=== PATIENT | female | born 1970 | race Caucasian/White ===

== ENCOUNTER 2018-04-05 21:35 | Inpatient (IN) | payer MEDICAID ==
[~2018-04-05] VITALS: Ht 162.6 cm; Wt 78.6 kg
[~2018-04-05 21:35] MED LIST: ALBU18HF2 IH; CARV3.1242 PO; FERR325T23 PO; FURO-151 PO; LISI-186 PO; NIFE60TA64 PO
[2018-04-05] MEDS ORDERED: FUROSEMIDE 40MG/4ML VIAL IV ONE (23:00)
[2018-04-05 23:12] LABS: BASOPHILS % 1.2 % (0.0-2.0); EOSINOPHILS % 0.3 % (0.0-5.0); HEMATOCRIT. 41.2 % (36.0-48.0); LYMPHOCYTES % 11.2 % (20.0-50.0); MEAN CORPUSCULAR HEMOGLOBIN 24.2 pg (28.0-32.0); MEAN CORPUSCULAR VOLUME 76.4 fL (81.0-99.0); MEAN PLATELET VOLUME 9.4 fl (7.4-10.4); MONOCYTES % 8.8 % (2.0-8.0); NEUTROPHILS % 78.5 % (40.0-76.0); PLATELET 336 x1000/uL (130-400); RED BLOOD CELL COUNT 5.39 mill/uL (4.2-5.4)
[2018-04-05 23:18] LABS: CHLORIDE 102 mEq/L (98-107)
[2018-04-06] VITALS (7 sets, daily range): BP systolic 122–147; BP diastolic 84–100
[2018-04-06] MEDS ORDERED: NIFE20CA MT (04:10)
[2018-04-06] MEDS ORDERED: IPRATROPIUM/ALBUTEROL 0.5-3(2.5)MG/3ML NEB HHN PRN (05:00)
[2018-04-06] MEDS ORDERED: CLONIDINE 0.1MG TABLET PO PRN (05:15)
[2018-04-06] MEDS: SPIRONOLACTONE 25MG TABLET PO SCH (08:25)
[2018-04-06] MEDS: ASPIRIN 325MG TABLET PO SCH (08:25)
[2018-04-06] MEDS: FUROSEMIDE 40MG/4ML VIAL IVP SCH ×2 (08:25→17:01)
[2018-04-06] MEDS: ENOXAPARIN 40MG/0.4ML SYR SUBCUT SCH (08:26)
[2018-04-06] MEDS: LISINOPRIL 10MG TABLET PO SCH (08:26)
[2018-04-06 12:26] LABS: BASOPHILS % 0.9 % (0.0-2.0); EOSINOPHILS % 0.5 % (0.0-5.0); HEMATOCRIT. 38.3 % (36.0-48.0); HEMOGLOBIN. 11.9 g/dL (12.0-16.0); LYMPHOCYTES % 10.5 % (20.0-50.0); MEAN CORPUSCULAR HEMOGLOBIN 23.9 pg (28.0-32.0); MEAN CORPUSCULAR VOLUME 76.8 fL (81.0-99.0); MEAN PLATELET VOLUME 9.3 fl (7.4-10.4); MONOCYTES % 10.2 % (2.0-8.0); NEUTROPHILS % 77.9 % (40.0-76.0); PLATELET 270 x1000/uL (130-400); RED BLOOD CELL COUNT 4.99 mill/uL (4.2-5.4); RED CELL DISTRIBUTION WIDTH 17.8 % (11.6-14.6)
[2018-04-06 12:43] LABS: CHLORIDE 99 mEq/L (98-107)
[2018-04-06] MEDS: CARVEDILOL 6.25 MG TABLET PO SCH (20:13)
[2018-04-06 21:28] LABS: CLARITY URINE CLEAR (CLEAR); COLOR URINE YELLOW (YELLOW); KETONES URINE NEGATIVE (NEGATIVE); LEUKOCYTE ESTERASE URINE TRACE (NEGATIVE); NITRITE URINE NEGATIVE (NEGATIVE); OCCULT BLOOD URINE NEGATIVE (NEGATIVE); PH URINE 5.5 (4.5-8.0); PROTEIN URINE NEGATIVE (NEGATIVE); SPECIFIC GRAVITY URINE 1.006 (1.005-1.030)
[2018-04-06 21:37] LABS: *BARBITURATES SCREEN URINE NEGATIVE (NEGATIVE); *BENZODIAZEPINES SCREEN URINE NEGATIVE (NEGATIVE); *COCAINE SCREEN URINE NEGATIVE (NEGATIVE); METHADONE URINE SCREEN NEGATIVE (NEGATIVE); OPIATES URINE SCREEN NEGATIVE (NEGATIVE)
[2018-04-06 21:39] LABS: PHENCYCLIDINE URINE SCREEN NEGATIVE (NEGATIVE)
[2018-04-06 21:43] LABS: *AMPHETAMINES SCREEN URINE PRESUMTIVE POSITIVE (NEGATIVE); CANNABINOID URINE SCREEN PRESUMTIVE POSITIVE (NEGATIVE)
[2018-04-07] VITALS (7 sets, daily range): BP systolic 110–138; BP diastolic 67–96
[2018-04-07 06:29] LABS: BASOPHILS % 0.9 % (0.0-2.0); EOSINOPHILS % 2.6 % (0.0-5.0); HEMATOCRIT. 35.5 % (36.0-48.0); HEMOGLOBIN. 11.4 g/dL (12.0-16.0); LYMPHOCYTES % 22.1 % (20.0-50.0); MEAN CORPUSCULAR HEMOGLOBIN 24.5 pg (28.0-32.0); MEAN CORPUSCULAR VOLUME 76.2 fL (81.0-99.0); MEAN PLATELET VOLUME 9.4 fl (7.4-10.4); MONOCYTES % 11.1 % (2.0-8.0); NEUTROPHILS % 63.3 % (40.0-76.0); PLATELET 248 x1000/uL (130-400); RED BLOOD CELL COUNT 4.66 mill/uL (4.2-5.4)
[2018-04-07 06:48] LABS: CHLORIDE 99 mEq/L (98-107)
[2018-04-07] MEDS: SPIRONOLACTONE 25MG TABLET PO SCH (09:51)
[2018-04-07] MEDS: ASPIRIN 325MG TABLET PO SCH (09:52)
[2018-04-07] MEDS: ENOXAPARIN 40MG/0.4ML SYR SUBCUT SCH (09:52)
[2018-04-07] MEDS: LISINOPRIL 10MG TABLET PO SCH (09:53)
[2018-04-07] MEDS: CARVEDILOL 6.25 MG TABLET PO SCH (09:54)
[2018-04-07] MEDS: FUROSEMIDE 40MG/4ML VIAL IVP SCH ×2 (13:12→17:56)
[2018-04-07] MEDS ORDERED: CARVEDILOL 12.5MG TABLET PO SCH (21:00)
== END 2018-04-07 21:25 | disposition home or self-care (01) | DRG 194 ==
LOC: ER 21:35 → 8WST 04-06 01:20 → EDBEDREQDT 04-06 01:22 → EDBEDREQ 04-06 01:22 → EDBEDREQTM 04-06 01:22 → ENRESERV 04-06 02:40
PROVIDERS: ADMIT Internal Medicine; ATTEND Internal Medicine
DX: I11.0 Hypertensive heart disease with heart failure (principal); I27.20 Pulmonary hypertension, unspecified; I42.9 Cardiomyopathy, unspecified; E44.1 Mild protein-calorie malnutrition; I50.23 Acute on chronic systolic (congestive) heart failure; F12.10 Cannabis abuse, uncomplicated; F15.90 Other stimulant use, unspecified, uncomplicated; I34.0 Nonrheumatic mitral (valve) insufficiency; Z87.891 Personal history of nicotine dependence; Z98.891 History of uterine scar from previous surgery; Z68.29 Body mass index [BMI] 29.0-29.9, adult; Z79.899 Other long term (current) drug therapy; Z71.51 Drug abuse counseling and surveillance of drug abuser
CPT/HCPCS: 36415; 71045; 80048; 80305; 83880; 93005; 93306; 93970; 96374; 99285; J1650; J1940

== ENCOUNTER 2018-05-08 12:20 | Inpatient (IN) | payer MEDICAID ==
[~2018-05-08] VITALS: Ht 162.6 cm; Wt 86.2 kg
[~2018-05-08 12:20] MED LIST changes: -ALBU18HF2 IH; -FERR325T23 PO; -NIFE60TA64 PO
[2018-05-08] MEDS ORDERED: METHYLPREDNISOLONE SOD SUCC 125 MG/2 ML VIAL IV STA (15:37)
[2018-05-08] MEDS ORDERED: IPRATROPIUM BROMIDE (0.02%) 0.5MG/2.5ML NEB HHN STA (15:37)
[2018-05-08] MEDS ORDERED: ALBUTEROL (0.083%) 2.5MG/3ML NEB HHN STA (15:37)
[2018-05-08] MEDS ORDERED: NITROGLYCERIN 0.4MG TABLET SL SL PRN (15:45)
[2018-05-08] MEDS ORDERED: FUROSEMIDE 40MG/4ML VIAL IV ONE (15:45)
[2018-05-08] MEDS ORDERED: ASPIRIN 81MG TABLET PO ONE (15:45)
[2018-05-08 16:47] LABS: HEMATOCRIT. 39.5 % (36.0-48.0); HEMOGLOBIN. 12.4 g/dL (12.0-16.0); MEAN CORPUSCULAR HEMOGLOBIN 23.5 pg (28.0-32.0); MEAN CORPUSCULAR VOLUME 74.8 fL (81.0-99.0); MEAN PLATELET VOLUME 9.5 fl (7.4-10.4); PLATELET 202 x1000/uL (130-400); RED BLOOD CELL COUNT 5.28 mill/uL (4.2-5.4); RED CELL DISTRIBUTION WIDTH 17.9 % (11.6-14.6)
[2018-05-08 16:53] LABS: CHLORIDE 102 mEq/L (98-107)
[2018-05-08 16:54] LABS: INR 1.7; PROTHROMBIN TIME 17.4 sec (9.1-11.1)
[2018-05-08 17:08] LABS: PLATELET ESTIMATE NORMAL
[2018-05-08] MEDS ORDERED: LEVOFLOXACIN 750MG PREMIX 150 ML IV ONE (17:15)
[2018-05-08 17:16] LABS: HCG SCREEN NEGATIVE
[2018-05-08] MEDS ORDERED: ONDANSETRON HCL 4MG/2ML INJ IV PRN (18:15)
[2018-05-08 18:40] LABS: CREATINE KINASE MB FRACTION 4.3 ng/mL (0.5-3.6)
[2018-05-08] MEDS ORDERED: METHYLPREDNISOLONE SOD SUCC 40 MG/ML VIAL IV SCH (23:00)
[2018-05-08] MEDS ORDERED: LEVOFLOXACIN 750MG PREMIX 150 ML IV SCH (23:15)
[2018-05-08 23:40] LABS: CLARITY URINE CLOUDY (CLEAR); COLOR URINE YELLOW (YELLOW); KETONES URINE NEGATIVE (NEGATIVE); LEUKOCYTE ESTERASE URINE 3+ (NEGATIVE); NITRITE URINE NEGATIVE (NEGATIVE); OCCULT BLOOD URINE 1+ (NEGATIVE); PROTEIN URINE TRACE (NEGATIVE); UROBILINOGEN URINE 0.2 E.U./dL (0.2-1.0)
[2018-05-09 00:35] LABS: *BARBITURATES SCREEN URINE NEGATIVE (NEGATIVE); *BENZODIAZEPINES SCREEN URINE NEGATIVE (NEGATIVE); *COCAINE SCREEN URINE NEGATIVE (NEGATIVE); METHADONE URINE SCREEN NEGATIVE (NEGATIVE); OPIATES URINE SCREEN NEGATIVE (NEGATIVE); PHENCYCLIDINE URINE SCREEN NEGATIVE (NEGATIVE)
[2018-05-09 00:57] LABS: *AMPHETAMINES SCREEN URINE PRESUMTIVE POSITIVE (NEGATIVE); CANNABINOID URINE SCREEN PRESUMTIVE POSITIVE (NEGATIVE)
[2018-05-09] MEDS ORDERED: IPRATROPIUM/ALBUTEROL 0.5-3(2.5)MG/3ML NEB HHN PRN (01:36)
[2018-05-09] MEDS ORDERED: GUAIFENESIN-DM 200MG-20MG/10ML UDC PO PRN (01:36)
[2018-05-09] MEDS ORDERED: ACETAMINOPHEN 325MG TABLET PO PRN (01:37)
[2018-05-09] MEDS ORDERED: ENOXAPARIN 40MG/0.4ML SYR SUBCUT SCH (09:00)
[2018-05-09] MEDS ORDERED: SPIRONOLACTONE 50MG TABLET PO SCH (09:00)
[2018-05-09] MEDS: FUROSEMIDE 40MG/4ML VIAL IVP SCH ×2 (10:00→17:12)
[2018-05-09] MEDS: ASPIRIN 81MG TABLET PO SCH (10:00)
[2018-05-09] MEDS: AZITHROMYCIN 500 MG TABLET PO SCH (10:00)
[2018-05-09] MEDS: LOSARTAN POTASSIUM 50 MG TABLET PO SCH (10:28)
[2018-05-09] MEDS: CEFTRIAXONE 1 G PREMIX 50 ML IV SCH (10:47)
[2018-05-09 12:00] VITALS: BP 115/84
[2018-05-09] MEDS: IPRATROPIUM/ALBUTEROL 0.5-3(2.5)MG/3ML NEB HHN SCH ×2 (12:00→16:00)
[2018-05-09 12:35] LABS: BASOPHILS % 0.3 % (0.0-2.0); HEMATOCRIT. 40.7 % (36.0-48.0); HEMOGLOBIN. 12.4 g/dL (12.0-16.0); LYMPHOCYTES % 7.3 % (20.0-50.0); MEAN CORPUSCULAR HEMOGLOBIN 23.2 pg (28.0-32.0); MEAN CORPUSCULAR VOLUME 76.1 fL (81.0-99.0); NEUTROPHILS % 83.4 % (40.0-76.0); PLATELET 209 x1000/uL (130-400); RED BLOOD CELL COUNT 5.34 mill/uL (4.2-5.4); RED CELL DISTRIBUTION WIDTH 17.9 % (11.6-14.6)
[2018-05-09 12:36] LABS: CHLORIDE 100 mEq/L (98-107)
[2018-05-09] MEDS ORDERED: ASPI-1158 MT (12:41)
[2018-05-09] MEDS ORDERED: FURO40TA5 PO (12:43)
[2018-05-09] MEDS ORDERED: CARV12.545 MT (12:43)
[2018-05-09] MEDS ORDERED: LISI10TA5 MT (12:44)
[2018-05-09 14:46] VITALS: BP 115/84
[2018-05-09 16:00] VITALS: BP 119/93
[2018-05-09] MEDS: MONTELUKAST SODIUM 10MG TABLET PO SCH (17:12)
[2018-05-09 20:00] VITALS: BP 145/100
[2018-05-09] MEDS: METHYLPREDNISOLONE SOD SUCC 40 MG/ML VIAL IV SCH (21:22)
[2018-05-09] MEDS: CARVEDILOL 3.125 MG TABLET PO SCH (21:22)
[2018-05-10] VITALS (7 sets, daily range): BP systolic 119–146; BP diastolic 75–103
[2018-05-10] MEDS: IPRATROPIUM/ALBUTEROL 0.5-3(2.5)MG/3ML NEB HHN SCH ×6 (03:44→20:45)
[2018-05-10] MEDS: METHYLPREDNISOLONE SOD SUCC 40 MG/ML VIAL IV SCH ×3 (05:09→20:45)
[2018-05-10 06:59] LABS: HEMATOCRIT. 38.7 % (36.0-48.0); MEAN CORPUSCULAR HEMOGLOBIN 23.2 pg (28.0-32.0); MEAN CORPUSCULAR VOLUME 75.2 fL (81.0-99.0); MEAN PLATELET VOLUME 9.8 fl (7.4-10.4); PLATELET 192 x1000/uL (130-400); RED BLOOD CELL COUNT 5.15 mill/uL (4.2-5.4); RED CELL DISTRIBUTION WIDTH 17.8 % (11.6-14.6)
[2018-05-10] MEDS ORDERED: CEFTRIAXONE 1 G PREMIX 50 ML IV SCH (09:00)
[2018-05-10] MEDS: AZITHROMYCIN 500 MG TABLET PO SCH (09:17)
[2018-05-10] MEDS: LOSARTAN POTASSIUM 50 MG TABLET PO SCH (09:17)
[2018-05-10] MEDS: CARVEDILOL 3.125 MG TABLET PO SCH (09:18)
[2018-05-10] MEDS: ASPIRIN 81MG TABLET PO SCH (09:19)
[2018-05-10] MEDS: FUROSEMIDE 40MG/4ML VIAL IVP SCH ×2 (10:17→17:32)
[2018-05-10] MEDS: CEFTRIAXONE 1 G PREMIX 50 ML IV SCH ×2 (10:30→13:08)
[2018-05-10 11:39] LABS: PLATELET ESTIMATE NORMAL
[2018-05-10] MEDS: SPIRONOLACTONE 50MG TABLET PO SCH (15:31)
[2018-05-10] MEDS: MONTELUKAST SODIUM 10MG TABLET PO SCH (17:28)
[2018-05-10] MEDS: CARVEDILOL 12.5MG TABLET PO SCH (20:46)
[2018-05-11] MEDS: IPRATROPIUM/ALBUTEROL 0.5-3(2.5)MG/3ML NEB HHN SCH ×2 (00:40→20:23)
[2018-05-11 04:00] VITALS: BP 125/86
[2018-05-11] MEDS: METHYLPREDNISOLONE SOD SUCC 40 MG/ML VIAL IV SCH ×3 (06:41→21:02)
[2018-05-11 08:00] VITALS: BP 140/101
[2018-05-11] MEDS: LOSARTAN POTASSIUM 50 MG TABLET PO SCH (08:36)
[2018-05-11] MEDS: AZITHROMYCIN 500 MG TABLET PO SCH (08:36)
[2018-05-11] MEDS: FUROSEMIDE 40MG/4ML VIAL IVP SCH ×2 (08:36→18:32)
[2018-05-11] MEDS: SPIRONOLACTONE 50MG TABLET PO SCH (08:37)
[2018-05-11] MEDS: ASPIRIN 81MG TABLET PO SCH (08:37)
[2018-05-11] MEDS: CARVEDILOL 12.5MG TABLET PO SCH (08:37)
[2018-05-11 12:00] VITALS: BP 132/96
[2018-05-11 16:00] VITALS: BP 138/103
[2018-05-11] MEDS ORDERED: ZOLPIDEM TARTRATE 5MG TABLET PO PRN (17:00)
[2018-05-11] MEDS: MONTELUKAST SODIUM 10MG TABLET PO SCH (18:33)
[2018-05-11 20:00] VITALS: BP 142/102
[2018-05-11] MEDS: CARVEDILOL 25MG TABLET PO SCH (21:00)
[2018-05-12] VITALS: BP 121/73
[2018-05-12] MEDS: IPRATROPIUM/ALBUTEROL 0.5-3(2.5)MG/3ML NEB HHN SCH ×5 (00:24→15:03)
[2018-05-12 04:00] VITALS: BP 122/87
[2018-05-12] MEDS: METHYLPREDNISOLONE SOD SUCC 40 MG/ML VIAL IV SCH ×2 (06:01→13:59)
[2018-05-12 08:00] VITALS: BP 141/110
[2018-05-12] MEDS: FUROSEMIDE 40MG/4ML VIAL IVP SCH (10:18)
[2018-05-12] MEDS: LOSARTAN POTASSIUM 50 MG TABLET PO SCH (10:18)
[2018-05-12] MEDS: ASPIRIN 81MG TABLET PO SCH (10:18)
[2018-05-12] MEDS: CEFTRIAXONE 1 G PREMIX 50 ML IV SCH (13:58)
[2018-05-12] MEDS: CARVEDILOL 25MG TABLET PO SCH (13:59)
[2018-05-12] MEDS: SPIRONOLACTONE 50MG TABLET PO SCH (13:59)
[2018-05-12] MEDS: AZITHROMYCIN 500 MG TABLET PO SCH (13:59)
== END 2018-05-12 16:08 | disposition left against medical advice (07) | DRG 720 ==
LOC: ER 12:20 → 7WST 19:03 → EDBEDREQTM 19:13 → EDBEDREQ 19:13 → EDBEDREQSVC 22:26 → EDBEDREQTM 22:26 → EDBEDREQSVC 22:36 → ENRESERV 05-09 11:37
PROVIDERS: ADMIT Internal Medicine; ATTEND Internal Medicine
DX: A41.9 Sepsis, unspecified organism (principal); J96.00 Acute respiratory failure, unspecified whether with hypoxia or hypercapnia; I50.23 Acute on chronic systolic (congestive) heart failure; E44.0 Moderate protein-calorie malnutrition; I27.20 Pulmonary hypertension, unspecified; J18.9 Pneumonia, unspecified organism; I11.0 Hypertensive heart disease with heart failure; I07.1 Rheumatic tricuspid insufficiency; E44.1 Mild protein-calorie malnutrition; I42.9 Cardiomyopathy, unspecified; J44.0 Chronic obstructive pulmonary disease with (acute) lower respiratory infection; J44.1 Chronic obstructive pulmonary disease with (acute) exacerbation; N39.0 Urinary tract infection, site not specified; F12.10 Cannabis abuse, uncomplicated; F15.10 Other stimulant abuse, uncomplicated; Z87.891 Personal history of nicotine dependence; Z98.891 History of uterine scar from previous surgery
CPT/HCPCS: 36415; 71045; 80048; 80305; 82550; 82553; 83605; 83880; 84484; 84703; 93005; 93970; 94640; 96365; 96375; 99291; J0696; J1650; J1940; J1956; J2920; J2930; J7050; J7611; J7620

== ENCOUNTER 2018-05-17 15:20 | Inpatient (IN) | payer MEDICAID ==
[~2018-05-17] VITALS: Ht 162.6 cm; Wt 69.9 kg
[~2018-05-17 15:20] MED LIST changes: +ASPI-1158 MT; +CARV12.545 MT; -CARV3.1242 PO; -FURO-151 PO; +FURO40TA5 PO; -LISI-186 PO; +LISI10TA5 MT
[2018-05-17] MEDS ORDERED: IPRATROPIUM BROMIDE (0.02%) 0.5MG/2.5ML NEB HHN STA (17:08)
[2018-05-17] MEDS ORDERED: ALBUTEROL (0.083%) 2.5MG/3ML NEB HHN STA (17:08)
[2018-05-17] MEDS ORDERED: METHYLPREDNISOLONE SOD SUCC 125 MG/2 ML VIAL IV STA (17:08)
[2018-05-17 18:12] LABS: CHLORIDE 92 mEq/L (98-107); INR 2.2; PROTHROMBIN TIME 21.4 sec (9.1-11.1)
[2018-05-17 18:17] LABS: BASOPHILS % 0.5 % (0.0-2.0); HEMATOCRIT. 43.5 % (36.0-48.0); HEMOGLOBIN. 13.5 g/dL (12.0-16.0); MEAN CORPUSCULAR VOLUME 74.2 fL (81.0-99.0); MEAN PLATELET VOLUME 10.9 fl (7.4-10.4); MONOCYTES % 8.4 % (2.0-8.0); NEUTROPHILS % 80.1 % (40.0-76.0); PLATELET 190 x1000/uL (130-400); RED BLOOD CELL COUNT 5.86 mill/uL (4.2-5.4); RED CELL DISTRIBUTION WIDTH 18.3 % (11.6-14.6)
[2018-05-17] MEDS ORDERED: ASPIRIN 81MG TABLET PO ONE (18:45)
[2018-05-17] MEDS ORDERED: SODIUM CHLORIDE 0.9% 2,000 ML IV NR (18:45)
[2018-05-17] MEDS ORDERED: CEFTRIAXONE 1 G PREMIX 50 ML IV ONE (19:00)
[2018-05-17] MEDS ORDERED: AZITHROMYCIN 500 MG in DEXT 5% WATER 250 ML IV SCH (19:00)
[2018-05-17 20:09] LABS: CREATINE KINASE MB FRACTION 26.8 ng/mL (0.5-3.6)
[2018-05-18] VITALS (8 sets, daily range): BP systolic 128–141; BP diastolic 63–101
[2018-05-18] MEDS ORDERED: MORPHINE SULFATE 4 MG/ML CPJ (NOT FOR IM USE) IV PRN (04:45)
[2018-05-18] MEDS ORDERED: CEFTRIAXONE 1,000 MG in DEXTROSE 5% WATER 50 ML IV SCH (09:00)
[2018-05-18] MEDS ORDERED: IPRATROPIUM/ALBUTEROL 0.5-3(2.5)MG/3ML NEB HHN PRN (09:00)
[2018-05-18] MEDS: FUROSEMIDE 40MG/4ML VIAL IVP SCH ×2 (09:32→16:29)
[2018-05-18] MEDS: ASPIRIN 81MG TABLET PO SCH (09:32)
[2018-05-18] MEDS: METHYLPREDNISOLONE SOD SUCC 40 MG/ML VIAL IV SCH ×3 (09:32→21:11)
[2018-05-18] MEDS: CLOPIDOGREL 75MG TABLET PO SCH (10:51)
[2018-05-18] MEDS: AZITHROMYCIN 500 MG TABLET PO SCH (10:51)
[2018-05-18 10:56] LABS: HEMATOCRIT. 40.6 % (36.0-48.0); HEMOGLOBIN. 12.7 g/dL (12.0-16.0); MEAN CORPUSCULAR VOLUME 73.7 fL (81.0-99.0); MEAN PLATELET VOLUME 10.7 fl (7.4-10.4); PLATELET 147 x1000/uL (130-400); RED BLOOD CELL COUNT 5.52 mill/uL (4.2-5.4); RED CELL DISTRIBUTION WIDTH 18.3 % (11.6-14.6)
[2018-05-18 10:58] LABS: CHLORIDE 98 mEq/L (98-107)
[2018-05-18] MEDS: CEFTRIAXONE 1 G PREMIX 50 ML IV SCH (11:40)
[2018-05-18] MEDS: IPRATROPIUM/ALBUTEROL 0.5-3(2.5)MG/3ML NEB HHN SCH ×3 (12:15→21:02)
[2018-05-18] MEDS: BUDESONIDE 0.5MG/2ML NEB HHN SCH ×2 (12:15→21:02)
[2018-05-18 12:39] LABS: HEPATITIS B SURFACE ANTIGEN NEGATIVE
[2018-05-18 13:08] LABS: HEPATITIS A AB IGM NEGATIVE (NEGATIVE)
[2018-05-18 16:21] LABS: *BARBITURATES SCREEN URINE NEGATIVE (NEGATIVE); *BENZODIAZEPINES SCREEN URINE NEGATIVE (NEGATIVE); *COCAINE SCREEN URINE NEGATIVE (NEGATIVE); METHADONE URINE SCREEN NEGATIVE (NEGATIVE)
[2018-05-18 16:22] LABS: PHENCYCLIDINE URINE SCREEN NEGATIVE (NEGATIVE)
[2018-05-18 16:34] LABS: *AMPHETAMINES SCREEN URINE PRESUMTIVE POSITIVE (NEGATIVE); CANNABINOID URINE SCREEN PRESUMTIVE POSITIVE (NEGATIVE); OPIATES URINE SCREEN PRESUMTIVE POSITIVE (NEGATIVE)
[2018-05-18 18:00] LABS: NUCLEATED RED BLOOD CELLS 1 /100 WBC; PLATELET ESTIMATE NORMAL
[2018-05-18] MEDS ORDERED: ENOXAPARIN 80MG/0.8ML SYR SUBCUT SCH (21:00)
[2018-05-18] MEDS: METOPROLOL TARTRATE 25MG TABLET PO SCH (21:11)
[2018-05-19] VITALS (12 sets, daily range): BP systolic 113–158; BP diastolic 25–116
[2018-05-19] MEDS: IPRATROPIUM/ALBUTEROL 0.5-3(2.5)MG/3ML NEB HHN SCH ×6 (00:47→16:52)
[2018-05-19] MEDS: METHYLPREDNISOLONE SOD SUCC 40 MG/ML VIAL IV SCH (05:55)
[2018-05-19 07:05] LABS: HEMATOCRIT. 39.6 % (36.0-48.0); HEMOGLOBIN. 12.4 g/dL (12.0-16.0); MEAN CORPUSCULAR HEMOGLOBIN 23.3 pg (28.0-32.0); MEAN CORPUSCULAR VOLUME 74.3 fL (81.0-99.0); MEAN PLATELET VOLUME 10.1 fl (7.4-10.4); PLATELET 162 x1000/uL (130-400); RED BLOOD CELL COUNT 5.32 mill/uL (4.2-5.4); RED CELL DISTRIBUTION WIDTH 18.1 % (11.6-14.6)
[2018-05-19 07:07] LABS: CHLORIDE 96 mEq/L (98-107)
[2018-05-19 07:42] LABS: CREATINE KINASE 1509 IU/L (26-192)
[2018-05-19] MEDS: FUROSEMIDE 40MG/4ML VIAL IVP SCH (08:36)
[2018-05-19] MEDS: CLOPIDOGREL 75MG TABLET PO SCH (08:37)
[2018-05-19] MEDS: ASPIRIN 81MG TABLET PO SCH (08:37)
[2018-05-19] MEDS: AZITHROMYCIN 500 MG TABLET PO SCH (08:37)
[2018-05-19] MEDS: METOPROLOL TARTRATE 25MG TABLET PO SCH ×2 (08:41→20:15)
[2018-05-19] MEDS: CEFTRIAXONE 1 G PREMIX 50 ML IV SCH (10:34)
[2018-05-19 11:52] LABS: NUCLEATED RED BLOOD CELLS 2 /100 WBC
[2018-05-19 11:53] LABS: PLATELET ESTIMATE NORMAL
[2018-05-19] MEDS: BUDESONIDE 0.5MG/2ML NEB HHN SCH ×2 (13:22→21:30)
[2018-05-20] VITALS (15 sets, daily range): BP systolic 115–154; BP diastolic 30–117
[2018-05-20] MEDS: IPRATROPIUM/ALBUTEROL 0.5-3(2.5)MG/3ML NEB HHN SCH ×5 (04:20→21:50)
[2018-05-20 07:22] LABS: HEMOGLOBIN. 12.2 g/dL (12.0-16.0); MEAN CORPUSCULAR HEMOGLOBIN 23.3 pg (28.0-32.0); MEAN CORPUSCULAR VOLUME 74.5 fL (81.0-99.0); MEAN PLATELET VOLUME 10.8 fl (7.4-10.4); PLATELET 152 x1000/uL (130-400); RED BLOOD CELL COUNT 5.23 mill/uL (4.2-5.4); RED CELL DISTRIBUTION WIDTH 18.5 % (11.6-14.6)
[2018-05-20] MEDS: ASPIRIN 81MG TABLET PO SCH (08:34)
[2018-05-20] MEDS: CLOPIDOGREL 75MG TABLET PO SCH (08:34)
[2018-05-20] MEDS: AZITHROMYCIN 500 MG TABLET PO SCH (08:34)
[2018-05-20] MEDS: METOPROLOL TARTRATE 25MG TABLET PO SCH ×2 (08:35→20:56)
[2018-05-20] MEDS: FUROSEMIDE 40MG/4ML VIAL IVP SCH ×2 (08:35→16:28)
[2018-05-20] MEDS ORDERED: PREDNISONE 20MG TABLET PO SCH (09:00)
[2018-05-20] MEDS: BUDESONIDE 0.5MG/2ML NEB HHN SCH ×2 (09:47→21:50)
[2018-05-20 12:56] LABS: CREATINE KINASE 920 IU/L (26-192)
[2018-05-20] MEDS: CEFTRIAXONE 1 G PREMIX 50 ML IV SCH (13:18)
[2018-05-20 13:49] LABS: NUCLEATED RED BLOOD CELLS 1 /100 WBC
[2018-05-20 13:51] LABS: PLATELET ESTIMATE NORMAL
[2018-05-20] MEDS ORDERED: CLONIDINE 0.1MG TABLET PO PRN (15:45)
[2018-05-21] VITALS (12 sets, daily range): BP systolic 122–144; BP diastolic 73–111
[2018-05-21] MEDS: IPRATROPIUM/ALBUTEROL 0.5-3(2.5)MG/3ML NEB HHN SCH ×3 (01:01→08:49)
[2018-05-21 05:55] LABS: HEMATOCRIT. 38.6 % (36.0-48.0); MEAN CORPUSCULAR HEMOGLOBIN 23.3 pg (28.0-32.0); MEAN CORPUSCULAR VOLUME 74.8 fL (81.0-99.0); RED BLOOD CELL COUNT 5.17 mill/uL (4.2-5.4); RED CELL DISTRIBUTION WIDTH 18.4 % (11.6-14.6)
[2018-05-21 06:03] LABS: CHLORIDE 97 mEq/L (98-107)
[2018-05-21] MEDS: FUROSEMIDE 40MG/4ML VIAL IVP SCH (06:37)
[2018-05-21] MEDS: AZITHROMYCIN 500 MG TABLET PO SCH (08:53)
[2018-05-21] MEDS: METOPROLOL TARTRATE 25MG TABLET PO SCH (08:54)
[2018-05-21] MEDS: CLOPIDOGREL 75MG TABLET PO SCH (08:54)
[2018-05-21] MEDS: ASPIRIN 81MG TABLET PO SCH (08:54)
[2018-05-21] MEDS: CEFTRIAXONE 1 G PREMIX 50 ML IV SCH (11:00)
[2018-05-21 14:07] LABS: PLATELET ESTIMATE NORMAL
[2018-05-21 14:08] LABS: PLATELET 141 x1000/uL (130-400)
== END 2018-05-21 11:30 | disposition home or self-care (01) | DRG 812 ==
LOC: ER 15:20 → 3WST 18:56 → EDBEDREQSVC 19:01 → EDBEDREQ 19:01 → ENRESERV 05-18 04:40 → CANRESERV 05-18 04:40 → ENRESERV 05-18 06:46 → CANRESERV 05-18 06:46
PROVIDERS: ADMIT Internal Medicine; ATTEND Internal Medicine
DX: T43.621A Poisoning by amphetamines, accidental (unintentional), initial encounter (principal); I21.4 Non-ST elevation (NSTEMI) myocardial infarction; J96.00 Acute respiratory failure, unspecified whether with hypoxia or hypercapnia; I50.23 Acute on chronic systolic (congestive) heart failure; J84.9 Interstitial pulmonary disease, unspecified; J18.9 Pneumonia, unspecified organism; E44.0 Moderate protein-calorie malnutrition; N17.9 Acute kidney failure, unspecified; D68.9 Coagulation defect, unspecified; I27.20 Pulmonary hypertension, unspecified; I42.9 Cardiomyopathy, unspecified; J68.0 Bronchitis and pneumonitis due to chemicals, gases, fumes and vapors; D72.823 Leukemoid reaction; I11.0 Hypertensive heart disease with heart failure; F12.10 Cannabis abuse, uncomplicated; F15.10 Other stimulant abuse, uncomplicated; K76.0 Fatty (change of) liver, not elsewhere classified; T38.0X5A Adverse effect of glucocorticoids and synthetic analogues, initial encounter; Z79.899 Other long term (current) drug therapy; Z87.891 Personal history of nicotine dependence; K76.9 Liver disease, unspecified; Y92.89 Other specified places as the place of occurrence of the external cause; Z68.26 Body mass index [BMI] 26.0-26.9, adult
CPT/HCPCS: 36415; 71045; 76705; 80048; 80305; 82550; 82553; 83036; 83605; 83880; 84145; 84484; 86705; 86709; 86803; 87340; 93005; 93306; 94640; 96365; 96366; 96367; 96375; 99291; J0456; J0696; J1940; J2270; J2920; J2930; J7050; J7060; J7070; J7512; J7611; J7620; J7626

== ENCOUNTER 2018-07-02 20:26 | Inpatient (IN) | payer MEDICAID ==
[~2018-07-02] VITALS: Ht 162.6 cm; Wt 73.0 kg
[2018-07-03] VITALS (8 sets, daily range): BP systolic 128–150; BP diastolic 90–113
[2018-07-03 00:25] LABS: EOSINOPHILS % 1.4 % (0.0-5.0); HEMATOCRIT. 39.2 % (36.0-48.0); HEMOGLOBIN. 12.3 g/dL (12.0-16.0); LYMPHOCYTES % 11.8 % (20.0-50.0); MEAN CORPUSCULAR VOLUME 79.7 fL (81.0-99.0); MEAN PLATELET VOLUME 8.8 fl (7.4-10.4); MONOCYTES % 9.8 % (2.0-8.0); PLATELET 304 x1000/uL (130-400); RED BLOOD CELL COUNT 4.92 mill/uL (4.2-5.4); RED CELL DISTRIBUTION WIDTH 25.3 % (11.6-14.6)
[2018-07-03 00:39] LABS: CHLORIDE 107 mEq/L (98-107)
[2018-07-03 00:46] LABS: ETHANOL BLOOD < 10 mg/dL
[2018-07-03 00:59] LABS: PLATELET ESTIMATE NORMAL
[2018-07-03] MEDS ORDERED: LORAZEPAM 2MG/ML CPJ IV PRN (06:15)
[2018-07-03] MEDS ORDERED: IPRATROPIUM/ALBUTEROL 0.5-3(2.5)MG/3ML NEB INH PRN (06:15)
[2018-07-03] MEDS ORDERED: ONDANSETRON HCL 4MG/2ML INJ IV PRN (06:15)
[2018-07-03] MEDS ORDERED: GUAIFENESIN 200MG/10ML SUGAR FREE UDC PO PRN (06:15)
[2018-07-03] MEDS ORDERED: HYDRALAZINE 20MG/ML VIAL IV PRN (06:15)
[2018-07-03] MEDS ORDERED: HYDROCODONE/ACETAMINOPHEN 10/325MG TABLET PO PRN (06:15)
[2018-07-03] MEDS ORDERED: ACETAMINOPHEN 325MG TABLET PO PRN (06:15)
[2018-07-03] MEDS ORDERED: DOCUSATE SODIUM 100MG CAPSULE PO PRN (06:15)
[2018-07-03] MEDS ORDERED: CLONIDINE 0.1MG TABLET PO PRN (06:15)
[2018-07-03] MEDS ORDERED: MAGNESIUM/ALUMINUM HYDROXIDE/SIMETHICONE 30ML UDC PO PRN (06:15)
[2018-07-03] MEDS ORDERED: HYDROMORPHONE HCL/PF 2MG/ML CPJ IV PRN (06:15)
[2018-07-03] MEDS ORDERED: MAGNESIUM 2 G PREMIX 50 ML IV SCH (07:45)
[2018-07-03] MEDS: FUROSEMIDE 40MG/4ML VIAL IV SCH (10:01)
[2018-07-03] MEDS: ENOXAPARIN 40MG/0.4ML SYR SUBCUT SCH (10:01)
[2018-07-03] MEDS: ASPIRIN 81MG EC TABLET PO SCH (10:02)
[2018-07-03] MEDS: SODIUM CHLORIDE 0.9% INJ 3ML FLUSH IVF SCH ×2 (10:53→22:00)
[2018-07-03 11:19] LABS: CLARITY URINE CLEAR (CLEAR); COLOR URINE YELLOW (YELLOW); KETONES URINE NEGATIVE (NEGATIVE); LEUKOCYTE ESTERASE URINE 2+ (NEGATIVE); NITRITE URINE NEGATIVE (NEGATIVE); OCCULT BLOOD URINE TRACE (NEGATIVE); PROTEIN URINE 1+ (NEGATIVE); SPECIFIC GRAVITY URINE 1.013 (1.005-1.030)
[2018-07-03 12:24] LABS: *BARBITURATES SCREEN URINE NEGATIVE (NEGATIVE); *COCAINE SCREEN URINE NEGATIVE (NEGATIVE)
[2018-07-03 12:25] LABS: *BENZODIAZEPINES SCREEN URINE NEGATIVE (NEGATIVE); METHADONE URINE SCREEN NEGATIVE (NEGATIVE); OPIATES URINE SCREEN NEGATIVE (NEGATIVE)
[2018-07-03 12:26] LABS: PHENCYCLIDINE URINE SCREEN NEGATIVE (NEGATIVE)
[2018-07-03 12:30] LABS: *AMPHETAMINES SCREEN URINE PRESUMTIVE POSITIVE (NEGATIVE); CANNABINOID URINE SCREEN PRESUMTIVE POSITIVE (NEGATIVE)
[2018-07-03 15:22] LABS: CREATINE KINASE MB FRACTION 3.7 ng/mL (0.5-3.6)
[2018-07-03] MEDS ORDERED: ATOR40TA70 MT (18:43)
[2018-07-03] MEDS ORDERED: MAGN400T29 MT (18:43)
[2018-07-03] MEDS ORDERED: CARV3.1242 MT (18:43)
[2018-07-03] MEDS ORDERED: FURO40TA5 MT (18:43)
[2018-07-03] MEDS ORDERED: LISI-186 MT (18:43)
[2018-07-03] MEDS ORDERED: SPIR25TA6 MT (18:43)
[2018-07-03 23:27] LABS: CREATINE KINASE MB FRACTION 3.2 ng/mL (0.5-3.6)
[2018-07-04] VITALS: BP 137/104
[2018-07-04 04:00] VITALS: BP 139/95
[2018-07-04 06:13] LABS: BASOPHILS % 1.4 % (0.0-2.0); EOSINOPHILS % 5.2 % (0.0-5.0); HEMATOCRIT. 39.3 % (36.0-48.0); HEMOGLOBIN. 12.6 g/dL (12.0-16.0); LYMPHOCYTES % 15.2 % (20.0-50.0); MEAN CORPUSCULAR HEMOGLOBIN 25.6 pg (28.0-32.0); MEAN CORPUSCULAR VOLUME 79.7 fL (81.0-99.0); MEAN PLATELET VOLUME 9.1 fl (7.4-10.4); MONOCYTES % 11.5 % (2.0-8.0); NEUTROPHILS % 66.7 % (40.0-76.0); PLATELET 287 x1000/uL (130-400); RED BLOOD CELL COUNT 4.93 mill/uL (4.2-5.4); RED CELL DISTRIBUTION WIDTH 25.6 % (11.6-14.6)
[2018-07-04] MEDS: SODIUM CHLORIDE 0.9% INJ 3ML FLUSH IVF SCH (06:27)
[2018-07-04 07:01] LABS: CHLORIDE 105 mEq/L (98-107)
[2018-07-04 07:11] LABS: LDL CHOLESTEROL 59 mg/dL (5-100)
[2018-07-04 07:12] LABS: HDL CHOLESTEROL 33 mg/dL (40-59)
[2018-07-04 07:13] LABS: T4 FREE 1.13 ng/dL (0.76-1.46)
[2018-07-04] MEDS: FUROSEMIDE 40MG/4ML VIAL IV SCH (08:25)
[2018-07-04] MEDS: ENOXAPARIN 40MG/0.4ML SYR SUBCUT SCH (08:25)
[2018-07-04] MEDS: ASPIRIN 81MG EC TABLET PO SCH (08:25)
[2018-07-04 09:47] VITALS: BP 149/106
[2018-07-04 09:55] VITALS: BP 146/90
[2018-07-04 13:22] VITALS: BP 145/95
== END 2018-07-04 16:30 | disposition home or self-care (01) | DRG 463 ==
LOC: ER 20:26 → 8WST 07-03 01:50 → ENRESERV 07-03 02:02
PROVIDERS: ADMIT Internal Medicine; ATTEND Internal Medicine
DX: N39.0 Urinary tract infection, site not specified (principal); I11.0 Hypertensive heart disease with heart failure; I50.22 Chronic systolic (congestive) heart failure; F15.10 Other stimulant abuse, uncomplicated; Z79.899 Other long term (current) drug therapy; Z87.891 Personal history of nicotine dependence; Z79.82 Long term (current) use of aspirin
CPT/HCPCS: 36415; 71045; 80061; 80305; 80320; 82550; 82553; 83880; 84439; 84443; 84484; 93005; 96365; 96375; 99285; J0360; J1650; J1940; J3475; J7050; G0480

== ENCOUNTER 2018-07-27 12:03 | Inpatient (IN) | payer MEDICAID ==
[~2018-07-27] VITALS: Ht 162.6 cm; Wt 87.5 kg
[~2018-07-27 12:03] MED LIST changes: +ATOR40TA70 MT; -CARV12.545 MT; +CARV3.1242 MT; +FURO40TA5 MT; -FURO40TA5 PO; +LISI-186 MT; -LISI10TA5 MT; +MAGN400T29 MT; +SPIR25TA6 MT
[2018-07-27] MEDS ORDERED: HYDROCODONE/ACETAMINOPHEN 5/325MG TABLET PO ONE (13:00)
[2018-07-27] MEDS ORDERED: PIPERACILLIN/TAZ 3.375G PREMIX 50 ML IV ONE (13:00)
[2018-07-27 13:09] LABS: HEMATOCRIT. 41.6 % (36.0-48.0); HEMOGLOBIN. 13.3 g/dL (12.0-16.0); MEAN CORPUSCULAR HEMOGLOBIN 25.2 pg (28.0-32.0); MEAN CORPUSCULAR VOLUME 78.7 fL (81.0-99.0); MEAN PLATELET VOLUME 9.8 fl (7.4-10.4); PLATELET 181 x1000/uL (130-400); RED BLOOD CELL COUNT 5.29 mill/uL (4.2-5.4); RED CELL DISTRIBUTION WIDTH 22.5 % (11.6-14.6)
[2018-07-27 13:16] LABS: CHLORIDE 103 mEq/L (98-107)
[2018-07-27 13:37] LABS: PLATELET ESTIMATE NORMAL
[2018-07-27] MEDS ORDERED: POTASSIUM CHLORIDE 20MEQ TABLET SR PO ONE (14:45)
[2018-07-27] MEDS ORDERED: SODIUM CHLORIDE 0.9% 1,000 ML IV ONE (15:15)
[2018-07-27] MEDS ORDERED: CLONIDINE 0.1MG TABLET PO PRN (16:00)
[2018-07-27] MEDS ORDERED: LORAZEPAM 0.5MG TABLET PO PRN (16:00)
[2018-07-27] MEDS ORDERED: ONDANSETRON HCL 4MG/2ML INJ IV PRN (16:00)
[2018-07-27] MEDS ORDERED: ACETAMINOPHEN 325MG TABLET PO PRN (16:00)
[2018-07-27] MEDS ORDERED: DOCUSATE SODIUM 100MG CAPSULE PO PRN (16:00)
[2018-07-27] MEDS ORDERED: GUAIFENESIN 200MG/10ML SUGAR FREE UDC PO PRN (16:00)
[2018-07-27] MEDS ORDERED: NITROGLYCERIN 0.4MG TABLET SL SL PRN (16:00)
[2018-07-27] MEDS ORDERED: MAGNESIUM/ALUMINUM HYDROXIDE/SIMETHICONE 30ML UDC PO PRN (16:00)
[2018-07-27] MEDS ORDERED: IPRATROPIUM/ALBUTEROL 0.5-3(2.5)MG/3ML NEB INH PRN (16:00)
[2018-07-27] MEDS ORDERED: KCL 20MEQ/100ML PREMIX 100 ML IV NR (16:00)
[2018-07-27 17:07] LABS: ETHANOL BLOOD < 10 mg/dL
[2018-07-27 17:10] LABS: LDL CHOLESTEROL 52 mg/dL (5-100)
[2018-07-27 17:12] LABS: HDL CHOLESTEROL 35 mg/dL (40-59)
[2018-07-27] MEDS ORDERED: ENOXAPARIN 40MG/0.4ML SYR SUBCUT NR (18:15)
[2018-07-27] MEDS: KETOROLAC 15MG/ML VIAL IV PRN (20:52)
[2018-07-27] MEDS ORDERED: ZOLPIDEM TARTRATE 5MG TABLET PO PRN (21:00)
[2018-07-27 23:09] VITALS: BP 141/71
[2018-07-27] MEDS: FAMOTIDINE 20MG TABLET PO SCH (23:50)
[2018-07-27] MEDS: FUROSEMIDE 40MG/4ML VIAL IVP SCH (23:50)
[2018-07-28 04:00] VITALS: BP 98/67
[2018-07-28 07:45] VITALS: BP 108/62
[2018-07-28] MEDS: KETOROLAC 15MG/ML VIAL IV PRN ×2 (09:52→18:30)
[2018-07-28] MEDS: SPIRONOLACTONE 25MG TABLET PO SCH ×2 (09:58→21:00)
[2018-07-28] MEDS: FUROSEMIDE 40MG/4ML VIAL IVP SCH ×2 (09:58→21:00)
[2018-07-28 11:05] LABS: *AMPHETAMINES SCREEN URINE PRESUMTIVE POSITIVE (NEGATIVE); *BARBITURATES SCREEN URINE NEGATIVE (NEGATIVE); *BENZODIAZEPINES SCREEN URINE NEGATIVE (NEGATIVE); *COCAINE SCREEN URINE NEGATIVE (NEGATIVE)
[2018-07-28 11:09] LABS: METHADONE URINE SCREEN NEGATIVE (NEGATIVE)
[2018-07-28 11:10] LABS: PHENCYCLIDINE URINE SCREEN NEGATIVE (NEGATIVE)
[2018-07-28 11:24] LABS: CANNABINOID URINE SCREEN PRESUMTIVE POSITIVE (NEGATIVE); OPIATES URINE SCREEN PRESUMTIVE POSITIVE (NEGATIVE)
[2018-07-28 12:00] VITALS: BP 98/61
[2018-07-28] MEDS ORDERED: VANCOMYCIN 1500MG in DEXTROSE 5% WATER 250ML IV NR (13:00)
[2018-07-28] MEDS: PIPERACILLIN/TAZ 3.375G PREMIX 50 ML IV SCH ×2 (13:22→17:04)
[2018-07-28] MEDS ORDERED: MAGNESIUM 2 G PREMIX 50 ML IV NR (15:00)
[2018-07-28 16:00] VITALS: BP 103/64
[2018-07-28] MEDS: ENOXAPARIN 40MG/0.4ML SYR SUBCUT SCH (17:04)
[2018-07-28 20:00] VITALS: BP 101/59
[2018-07-28] MEDS: FAMOTIDINE 20MG TABLET PO SCH (22:11)
[2018-07-29] VITALS: BP 93/63
[2018-07-29] MEDS: PIPERACILLIN/TAZ 3.375G PREMIX 50 ML IV SCH ×4 (02:28→22:58)
[2018-07-29 04:00] VITALS: BP 111/78
[2018-07-29] MEDS ORDERED: VANCOMYCIN 1 G PREMIX 200 ML IV SCH (06:00)
[2018-07-29 08:00] VITALS: BP 108/76
[2018-07-29] MEDS: SPIRONOLACTONE 25MG TABLET PO SCH ×2 (09:24→20:10)
[2018-07-29] MEDS: FUROSEMIDE 40MG/4ML VIAL IVP SCH ×2 (09:40→20:11)
[2018-07-29 12:00] VITALS: BP 110/76
[2018-07-29 16:00] VITALS: BP 118/75
[2018-07-29 17:07] LABS: BASOPHILS % 1.1 % (0.0-2.0); EOSINOPHILS % 2.1 % (0.0-5.0); HEMATOCRIT. 40.9 % (36.0-48.0); LYMPHOCYTES % 8.2 % (20.0-50.0); MEAN CORPUSCULAR HEMOGLOBIN 24.8 pg (28.0-32.0); MEAN CORPUSCULAR VOLUME 78.2 fL (81.0-99.0); MEAN PLATELET VOLUME 10.2 fl (7.4-10.4); MONOCYTES % 5.3 % (2.0-8.0); NEUTROPHILS % 83.3 % (40.0-76.0); PLATELET 167 x1000/uL (130-400); RED BLOOD CELL COUNT 5.23 mill/uL (4.2-5.4); RED CELL DISTRIBUTION WIDTH 22.7 % (11.6-14.6)
[2018-07-29] MEDS: ENOXAPARIN 40MG/0.4ML SYR SUBCUT SCH (17:32)
[2018-07-29 17:40] LABS: CHLORIDE 101 mEq/L (98-107)
[2018-07-29 20:00] VITALS: BP 100/73
[2018-07-29] MEDS: FAMOTIDINE 20MG TABLET PO SCH (20:12)
[2018-07-30] VITALS (7 sets, daily range): BP systolic 105–133; BP diastolic 72–93
[2018-07-30] MEDS: PIPERACILLIN/TAZ 3.375G PREMIX 50 ML IV SCH ×2 (05:42→11:09)
[2018-07-30] MEDS: SPIRONOLACTONE 25MG TABLET PO SCH ×2 (08:33→21:15)
[2018-07-30] MEDS: VANCOMYCIN 1 G PREMIX 200 ML IV SCH (08:33)
[2018-07-30] MEDS: FUROSEMIDE 40MG/4ML VIAL IVP SCH ×2 (08:33→21:15)
[2018-07-30] MEDS: KETOROLAC 15MG/ML VIAL IV PRN ×2 (08:47→21:15)
[2018-07-30] MEDS ORDERED: CLINDAMYCIN 600 MG in DEXTROSE 5% WATER 50 ML IV SCH ×2 (15:00→16:30)
[2018-07-30] MEDS ORDERED: CEFTRIAXONE 1 G PREMIX 50 ML IV SCH ×2 (16:00)
[2018-07-30] MEDS: ENOXAPARIN 40MG/0.4ML SYR SUBCUT SCH (16:52)
[2018-07-30] MEDS: CLINDAMYCIN 600MG PREMIX 50 ML IV SCH ×2 (18:17→23:36)
[2018-07-30] MEDS: FAMOTIDINE 20MG TABLET PO SCH (21:15)
[2018-07-31 04:00] VITALS: BP 115/86
[2018-07-31 05:07] LABS: CLARITY URINE CLEAR (CLEAR); COLOR URINE DARK YELLOW (YELLOW); KETONES URINE NEGATIVE (NEGATIVE); LEUKOCYTE ESTERASE URINE 3+ (NEGATIVE); NITRITE URINE NEGATIVE (NEGATIVE); OCCULT BLOOD URINE 1+ (NEGATIVE); PROTEIN URINE NEGATIVE (NEGATIVE); SPECIFIC GRAVITY URINE 1.014 (1.005-1.030)
[2018-07-31] MEDS: CLINDAMYCIN 600MG PREMIX 50 ML IV SCH (07:53)
[2018-07-31 08:00] VITALS: BP 125/98
[2018-07-31] MEDS: SPIRONOLACTONE 25MG TABLET PO SCH (09:08)
[2018-07-31] MEDS: FUROSEMIDE 40MG/4ML VIAL IVP SCH (09:08)
[2018-07-31] MEDS: VANCOMYCIN 1 G PREMIX 200 ML IV SCH (09:09)
[2018-07-31 12:15] VITALS: BP 125/98
== END 2018-07-31 16:03 | disposition home or self-care (01) | DRG 194 ==
LOC: ER 12:03 → 7WST 14:42 → EDBEDREQ 15:07 → EDBEDREQSVC 15:07 → ENRESERV 20:49
PROVIDERS: ADMIT Internal Medicine; ATTEND Internal Medicine
DX: I11.0 Hypertensive heart disease with heart failure (principal); E87.2 Acidosis; L03.115 Cellulitis of right lower limb; E44.0 Moderate protein-calorie malnutrition; L03.116 Cellulitis of left lower limb; L97.909 Non-pressure chronic ulcer of unspecified part of unspecified lower leg with unspecified severity; I42.9 Cardiomyopathy, unspecified; I50.41 Acute combined systolic (congestive) and diastolic (congestive) heart failure; E87.6 Hypokalemia; R74.0 Nonspecific elevation of levels of transaminase and lactic acid dehydrogenase [LDH]; E11.9 Type 2 diabetes mellitus without complications; F19.10 Other psychoactive substance abuse, uncomplicated; E78.00 Pure hypercholesterolemia, unspecified; Z59.0 Homelessness; Z91.14 Patient's other noncompliance with medication regimen; Z91.19 Patient's noncompliance with other medical treatment and regimen; Z56.0 Unemployment, unspecified; Z98.891 History of uterine scar from previous surgery; Z87.891 Personal history of nicotine dependence; Z68.33 Body mass index [BMI] 33.0-33.9, adult; Z79.84 Long term (current) use of oral hypoglycemic drugs
CPT/HCPCS: 36415; 71045; 73718; 80048; 80061; 80202; 80305; 80320; 83036; 83605; 83735; 85651; 86140; 87077; 87186; 93005; 93970; 97162; 99285; J0696; J1650; J1885; J1940; J2543; J3370; J3475; J3480; J3490; J7030; J7040; J7060; G0480

== ENCOUNTER 2018-11-22 00:51 | Inpatient (IN) | payer MEDICAID ==
[~2018-11-22] VITALS: Ht 162.6 cm; Wt 79.0 kg
[~2018-11-22 00:51] MED LIST changes: +AMLO5TAB88 PO; -CARV3.1242 MT; +FURO-151 MT; -FURO40TA5 MT
[2018-11-22 03:33] LABS: BASOPHILS % 0.4 % (0.0-2.0); EOSINOPHILS % 0.5 % (0.0-5.0); HEMATOCRIT. 46.3 % (36.0-48.0); HEMOGLOBIN. 14.9 g/dL (12.0-16.0); LYMPHOCYTES % 15.4 % (20.0-50.0); MEAN CORPUSCULAR VOLUME 86.9 fL (81.0-99.0); MEAN PLATELET VOLUME 9.7 fl (7.4-10.4); MONOCYTES % 13.7 % (2.0-8.0); PLATELET 268 x1000/uL (130-400); RED BLOOD CELL COUNT 5.33 mill/uL (4.2-5.4); RED CELL DISTRIBUTION WIDTH 19.5 % (11.6-14.6)
[2018-11-22 03:41] LABS: CHLORIDE 98 mEq/L (98-107)
[2018-11-22 03:48] LABS: ETHANOL BLOOD < 10 mg/dL
[2018-11-22 04:02] LABS: CLARITY URINE CLOUDY (CLEAR); COLOR URINE DARK YELLOW (YELLOW); KETONES URINE TRACE (NEGATIVE); LEUKOCYTE ESTERASE URINE 3+ (NEGATIVE); NITRITE URINE NEGATIVE (NEGATIVE); OCCULT BLOOD URINE 1+ (NEGATIVE); PROTEIN URINE 3+ (NEGATIVE); SPECIFIC GRAVITY URINE 1.021 (1.005-1.030)
[2018-11-22 04:12] LABS: *BARBITURATES SCREEN URINE NEGATIVE (NEGATIVE)
[2018-11-22 04:13] LABS: *BENZODIAZEPINES SCREEN URINE NEGATIVE (NEGATIVE); *COCAINE SCREEN URINE NEGATIVE (NEGATIVE); METHADONE URINE SCREEN NEGATIVE (NEGATIVE); OPIATES URINE SCREEN NEGATIVE (NEGATIVE); PHENCYCLIDINE URINE SCREEN NEGATIVE (NEGATIVE)
[2018-11-22 04:17] LABS: *AMPHETAMINES SCREEN URINE PRESUMTIVE POSITIVE (NEGATIVE); CANNABINOID URINE SCREEN PRESUMTIVE POSITIVE (NEGATIVE)
[2018-11-22] MEDS ORDERED: ONDANSETRON HCL 4MG/2ML INJ IV STA (05:18)
[2018-11-22] MEDS ORDERED: ACETAMINOPHEN 325MG TABLET PO STA (05:18)
[2018-11-22] MEDS ORDERED: FUROSEMIDE 40MG/4ML VIAL IVP ONE (05:30)
[2018-11-22] MEDS ORDERED: ASPIRIN 81MG TABLET PO ONE (05:30)
[2018-11-22] MEDS ORDERED: CEFTRIAXONE 1 G PREMIX 50 ML IV ONE (06:30)
[2018-11-22] MEDS ORDERED: ACETAMINOPHEN 325MG TABLET PO PRN ×2 (07:15→10:45)
[2018-11-22 08:00] VITALS: BP 139/106
[2018-11-22 09:20] VITALS: BP 139/106
[2018-11-22] MEDS ORDERED: IPRATROPIUM/ALBUTEROL 0.5-3(2.5)MG/3ML NEB INH PRN (10:45)
[2018-11-22] MEDS ORDERED: LORAZEPAM 0.5MG TABLET PO PRN (10:45)
[2018-11-22] MEDS ORDERED: HYDROCODONE/ACETAMINOPHEN 5/325MG TABLET PO PRN (10:45)
[2018-11-22] MEDS ORDERED: ONDANSETRON HCL 4MG/2ML INJ IV PRN (10:45)
[2018-11-22] MEDS ORDERED: DOCUSATE SODIUM 100MG CAPSULE PO PRN (10:45)
[2018-11-22 11:48] LABS: T4 FREE 1.48 ng/dL (0.76-1.46)
[2018-11-22 12:00] VITALS: BP 153/109
[2018-11-22] MEDS: CLONIDINE 0.1MG TABLET PO PRN ×2 (12:09→23:27)
[2018-11-22 16:00] VITALS: BP 124/90
[2018-11-22] MEDS: FUROSEMIDE 40MG/4ML VIAL IVP SCH (16:24)
[2018-11-22] MEDS: AMLODIPINE 5MG TABLET PO SCH (16:25)
[2018-11-22 18:04] LABS: CREATINE KINASE MB FRACTION 2.8 ng/mL (0.5-3.6)
[2018-11-22 20:00] VITALS: BP 121/92
[2018-11-22 20:30] VITALS: BP 122/88
[2018-11-23] VITALS: BP 126/86
[2018-11-23 00:36] LABS: CREATINE KINASE MB FRACTION 3.3 ng/mL (0.5-3.6)
[2018-11-23 04:15] VITALS: BP 126/90
[2018-11-23] MEDS: FUROSEMIDE 40MG/4ML VIAL IVP SCH ×2 (07:15→18:35)
[2018-11-23 08:12] LABS: BASOPHILS % 2.4 % (0.0-2.0); EOSINOPHILS % 1.9 % (0.0-5.0); HEMATOCRIT. 42.9 % (36.0-48.0); HEMOGLOBIN. 13.6 g/dL (12.0-16.0); LYMPHOCYTES % 15.4 % (20.0-50.0); MEAN CORPUSCULAR HEMOGLOBIN 27.8 pg (28.0-32.0); MEAN CORPUSCULAR VOLUME 87.7 fL (81.0-99.0); MONOCYTES % 11.7 % (2.0-8.0); NEUTROPHILS % 68.6 % (40.0-76.0); PLATELET 242 x1000/uL (130-400); RED CELL DISTRIBUTION WIDTH 19.5 % (11.6-14.6)
[2018-11-23] MEDS: AMLODIPINE 5MG TABLET PO SCH (08:50)
[2018-11-23] MEDS ORDERED: AMLODIPINE 5MG TABLET PO SCH (09:00)
[2018-11-23 09:09] LABS: CREATINE KINASE MB FRACTION 3.6 ng/mL (0.5-3.6)
[2018-11-23] MEDS: LOSARTAN POTASSIUM 25 MG TABLET PO SCH (13:12)
[2018-11-23 20:00] VITALS: BP 120/70
[2018-11-23] MEDS: CARVEDILOL 3.125 MG TABLET PO SCH (20:58)
[2018-11-24] VITALS: BP 103/68
[2018-11-24 04:00] VITALS: BP 116/62
[2018-11-24 06:27] LABS: INR 1.5; PROTHROMBIN TIME 15.7 sec (9.6-11.0)
[2018-11-24 08:00] VITALS: BP 103/53
[2018-11-24] MEDS: AMLODIPINE 5MG TABLET PO SCH (09:00)
[2018-11-24] MEDS: LOSARTAN POTASSIUM 25 MG TABLET PO SCH (10:19)
[2018-11-24] MEDS: FUROSEMIDE 40MG/4ML VIAL IVP SCH ×2 (10:27→17:44)
[2018-11-24] MEDS: CARVEDILOL 3.125 MG TABLET PO SCH ×2 (10:27→20:39)
[2018-11-24 12:00] VITALS: BP 108/78
[2018-11-24 16:00] VITALS: BP 113/63
[2018-11-24 20:00] VITALS: BP 118/56
[2018-11-25] VITALS: BP 108/62
[2018-11-25 04:00] VITALS: BP 110/70
[2018-11-25] MEDS: FUROSEMIDE 40MG/4ML VIAL IVP SCH ×2 (06:55→17:46)
[2018-11-25 08:00] VITALS: BP 118/88
[2018-11-25] MEDS: CARVEDILOL 3.125 MG TABLET PO SCH ×2 (08:41→21:00)
[2018-11-25] MEDS: AMLODIPINE 5MG TABLET PO SCH (08:41)
[2018-11-25] MEDS: LOSARTAN POTASSIUM 25 MG TABLET PO SCH (08:41)
[2018-11-25 09:02] LABS: INR 1.4; PROTHROMBIN TIME 14.6 sec (9.6-11.0)
[2018-11-25 09:04] LABS: BASOPHILS % 1.2 % (0.0-2.0); EOSINOPHILS % 2.8 % (0.0-5.0); HEMATOCRIT. 40.1 % (36.0-48.0); HEMOGLOBIN. 12.9 g/dL (12.0-16.0); LYMPHOCYTES % 9.9 % (20.0-50.0); MEAN CORPUSCULAR VOLUME 86.8 fL (81.0-99.0); MEAN PLATELET VOLUME 9.8 fl (7.4-10.4); MONOCYTES % 10.5 % (2.0-8.0); NEUTROPHILS % 75.6 % (40.0-76.0); PLATELET 214 x1000/uL (130-400); RED BLOOD CELL COUNT 4.62 mill/uL (4.2-5.4); RED CELL DISTRIBUTION WIDTH 19.3 % (11.6-14.6)
[2018-11-25 12:00] VITALS: BP 118/87
[2018-11-25 16:00] VITALS: BP 106/77
[2018-11-25 20:00] VITALS: BP 101/78
[2018-11-26] VITALS: BP 108/72
[2018-11-26 04:00] VITALS: BP 112/68
[2018-11-26 06:15] LABS: BASOPHILS % 1.2 % (0.0-2.0); EOSINOPHILS % 3.2 % (0.0-5.0); HEMATOCRIT. 40.9 % (36.0-48.0); LYMPHOCYTES % 13.4 % (20.0-50.0); MEAN CORPUSCULAR HEMOGLOBIN 27.8 pg (28.0-32.0); MEAN CORPUSCULAR VOLUME 87.4 fL (81.0-99.0); MEAN PLATELET VOLUME 9.7 fl (7.4-10.4); MONOCYTES % 10.4 % (2.0-8.0); NEUTROPHILS % 71.8 % (40.0-76.0); PLATELET 195 x1000/uL (130-400); RED BLOOD CELL COUNT 4.68 mill/uL (4.2-5.4); RED CELL DISTRIBUTION WIDTH 19.9 % (11.6-14.6)
[2018-11-26] MEDS: FUROSEMIDE 40MG/4ML VIAL IVP SCH ×2 (06:21→17:24)
[2018-11-26 08:21] VITALS: BP 113/75
[2018-11-26] MEDS: LOSARTAN POTASSIUM 25 MG TABLET PO SCH (08:25)
[2018-11-26] MEDS: AMLODIPINE 5MG TABLET PO SCH (08:25)
[2018-11-26] MEDS: CARVEDILOL 3.125 MG TABLET PO SCH (08:25)
[2018-11-26 11:58] VITALS: BP 108/59
[2018-11-26 15:16] VITALS: BP 131/94
[2018-11-26 16:12] VITALS: BP 131/94
== END 2018-11-26 18:20 | disposition home or self-care (01) | DRG 194 ==
LOC: ER 01:10 → ENRESERV 08:14 → 5WST 09:06
PROVIDERS: ADMIT Internal Medicine; ATTEND Internal Medicine
PROC: 0W9G3ZZ Drainage of Peritoneal Cavity, Percutaneous Approach (ICD-10-PCS; principal; 2018-11-25)
DX: I13.0 Hypertensive heart and chronic kidney disease with heart failure and stage 1 through stage 4 chronic kidney disease, or unspecified chronic kidney disease (principal); D68.9 Coagulation defect, unspecified; I27.20 Pulmonary hypertension, unspecified; I08.1 Rheumatic disorders of both mitral and tricuspid valves; L03.115 Cellulitis of right lower limb; R18.8 Other ascites; I50.23 Acute on chronic systolic (congestive) heart failure; E78.5 Hyperlipidemia, unspecified; F15.90 Other stimulant use, unspecified, uncomplicated; I42.0 Dilated cardiomyopathy; F12.10 Cannabis abuse, uncomplicated; K80.20 Calculus of gallbladder without cholecystitis without obstruction; N18.9 Chronic kidney disease, unspecified; R74.0 Nonspecific elevation of levels of transaminase and lactic acid dehydrogenase [LDH]; L03.116 Cellulitis of left lower limb; S00.81XA Abrasion of other part of head, initial encounter; Z87.891 Personal history of nicotine dependence; W55.03XA Scratched by cat, initial encounter; Z98.891 History of uterine scar from previous surgery; Z59.0 Homelessness; Y93.89 Activity, other specified; Y92.89 Other specified places as the place of occurrence of the external cause; Y99.8 Other external cause status
CPT/HCPCS: 36415; 49083; 71045; 76705; 80048; 80061; 80305; 80320; 81003; 82040; 82150; 82550; 82553; 82962; 83036; 83615; 83735; 83880; 84439; 84443; 84484; 85379; 93005; 93306; 93970; 94640; 96374; 99285; J0696; J1940; J2405; J7620; G0480

== ENCOUNTER 2018-12-21 03:44 | Inpatient (IN) | payer MEDICAID ==
[~2018-12-21] VITALS: Ht 162.6 cm; Wt 86.6 kg
[~2018-12-21 03:44] MED LIST changes: -AMLO5TAB88 PO; -ASPI-1158 MT; +ASPI-1158 PO; -ATOR40TA70 MT; +CARV3.1242 MT; -LISI-186 MT; +LISI2.5T47 MT; -MAGN400T29 MT; -SPIR25TA6 MT
[2018-12-21 05:50] LABS: CHLORIDE 99 mEq/L (98-107); HEMATOCRIT. 44.3 % (36.0-48.0); HEMOGLOBIN. 14.1 g/dL (12.0-16.0); MEAN CORPUSCULAR HEMOGLOBIN 27.5 pg (28.0-32.0); MEAN CORPUSCULAR VOLUME 86.6 fL (81.0-99.0); MEAN PLATELET VOLUME 10.2 fl (7.4-10.4); PLATELET 241 x1000/uL (130-400); RED BLOOD CELL COUNT 5.11 mill/uL (4.2-5.4); RED CELL DISTRIBUTION WIDTH 19.7 % (11.6-14.6)
[2018-12-21] MEDS ORDERED: FUROSEMIDE 40MG/4ML VIAL IV ONE (06:15)
[2018-12-21 07:10] LABS: CLARITY URINE CLOUDY (CLEAR); COLOR URINE DARK YELLOW (YELLOW); KETONES URINE TRACE (NEGATIVE); LEUKOCYTE ESTERASE URINE 2+ (NEGATIVE); NITRITE URINE NEGATIVE (NEGATIVE); OCCULT BLOOD URINE 2+ (NEGATIVE); PROTEIN URINE 2+ (NEGATIVE)
[2018-12-21 07:34] LABS: *BENZODIAZEPINES SCREEN URINE NEGATIVE (NEGATIVE); *COCAINE SCREEN URINE NEGATIVE (NEGATIVE); METHADONE URINE SCREEN NEGATIVE (NEGATIVE)
[2018-12-21 07:35] LABS: OPIATES URINE SCREEN NEGATIVE (NEGATIVE)
[2018-12-21 07:38] LABS: *BARBITURATES SCREEN URINE NEGATIVE (NEGATIVE)
[2018-12-21 07:45] LABS: PHENCYCLIDINE URINE SCREEN NEGATIVE (NEGATIVE)
[2018-12-21] MEDS ORDERED: CEFTRIAXONE 1 G PREMIX 50 ML IV ONE (07:45)
[2018-12-21 07:47] LABS: *AMPHETAMINES SCREEN URINE PRESUMTIVE POSITIVE (NEGATIVE); CANNABINOID URINE SCREEN PRESUMTIVE POSITIVE (NEGATIVE)
[2018-12-21 08:28] LABS: PLATELET ESTIMATE NORMAL
[2018-12-21 08:38] LABS: INR 2.5; PARTIAL THROMBOPLASTIN TIME 33.8 sec (23.4-31.0); PROTHROMBIN TIME 24.7 sec (9.6-11.0)
[2018-12-21] MEDS ORDERED: SODIUM BICARBONATE 4% (2.4MEQ) 5ML VIAL IV ONE (10:16)
[2018-12-21] MEDS ORDERED: LIDOCAINE HCL 1% 20ML VIAL (Pyxis) INJ ONE (10:17)
[2018-12-21 12:00] VITALS: BP_SYST 150; BP_DIAS 102; BP_DIAS 106
[2018-12-21] MEDS ORDERED: MAGNESIUM/ALUMINUM HYDROXIDE/SIMETHICONE 30ML UDC PO PRN (12:15)
[2018-12-21] MEDS ORDERED: DOCUSATE SODIUM 100MG CAPSULE PO PRN (12:15)
[2018-12-21] MEDS ORDERED: DIPHENHYDRAMINE 50MG/ML VIAL IV PRN (12:15)
[2018-12-21] MEDS ORDERED: CLONIDINE 0.1MG TABLET PO PRN (12:15)
[2018-12-21] MEDS ORDERED: IPRATROPIUM/ALBUTEROL 0.5-3(2.5)MG/3ML NEB HHN PRN (12:15)
[2018-12-21] MEDS ORDERED: GUAIFENESIN 200MG/10ML SUGAR FREE UDC PO PRN (12:15)
[2018-12-21] MEDS ORDERED: ONDANSETRON HCL 4MG/2ML INJ IV PRN (12:15)
[2018-12-21] MEDS ORDERED: MORPHINE SULFATE 4 MG/ML CPJ (NOT FOR IM USE) IV PRN (12:15)
[2018-12-21] MEDS ORDERED: CEFTRIAXONE 1 G PREMIX 50 ML IV SCH (13:30)
[2018-12-21 16:00] VITALS: BP 120/75
[2018-12-21 16:04] LABS: PHOSPHORUS 7.2 mg/dL (2.5-4.9)
[2018-12-21] MEDS: FUROSEMIDE 40MG/4ML VIAL IVP SCH (19:16)
[2018-12-21 20:00] VITALS: BP 131/84
[2018-12-21] MEDS: HEPARIN 5000 UNITS/ML VIAL SUBCUT SCH (22:04)
[2018-12-22] VITALS: BP 119/76
[2018-12-22 03:46] VITALS: BP 125/84
[2018-12-22 07:04] LABS: BASOPHILS % 0.2 % (0.0-2.0); EOSINOPHILS % 1.3 % (0.0-5.0); HEMOGLOBIN. 13.8 g/dL (12.0-16.0); LYMPHOCYTES % 14.8 % (20.0-50.0); MEAN CORPUSCULAR VOLUME 85.1 fL (81.0-99.0); MEAN PLATELET VOLUME 10.3 fl (7.4-10.4); MONOCYTES % 12.1 % (2.0-8.0); NEUTROPHILS % 71.6 % (40.0-76.0); PLATELET 228 x1000/uL (130-400); RED BLOOD CELL COUNT 4.94 mill/uL (4.2-5.4); RED CELL DISTRIBUTION WIDTH 19.8 % (11.6-14.6)
[2018-12-22 07:30] LABS: CHLORIDE 96 mEq/L (98-107)
[2018-12-22 07:43] LABS: LDL CHOLESTEROL 89 mg/dL (5-100)
[2018-12-22 07:45] LABS: HDL CHOLESTEROL 17 mg/dL (40-59)
[2018-12-22 08:00] VITALS: BP 128/97
[2018-12-22] MEDS ORDERED: CARVEDILOL 6.25 MG TABLET PO SCH (09:00)
[2018-12-22] MEDS: FUROSEMIDE 40MG/4ML VIAL IVP SCH (10:08)
[2018-12-22] MEDS: HEPARIN 5000 UNITS/ML VIAL SUBCUT SCH (10:48)
[2018-12-22 12:00] VITALS: BP 127/104
[2018-12-22 13:00] VITALS: BP 129/69
== END 2018-12-22 15:05 | disposition home or self-care (01) | DRG 194 ==
LOC: ER 03:44 → 7WST 09:51 → ENRESERV 10:02
PROVIDERS: ADMIT Internal Medicine; ATTEND Internal Medicine
PROC: 0W9G3ZZ Drainage of Peritoneal Cavity, Percutaneous Approach (ICD-10-PCS; principal; 2018-12-21)
DX: I13.0 Hypertensive heart and chronic kidney disease with heart failure and stage 1 through stage 4 chronic kidney disease, or unspecified chronic kidney disease (principal); N17.9 Acute kidney failure, unspecified; D68.9 Coagulation defect, unspecified; R18.8 Other ascites; E87.1 Hypo-osmolality and hyponatremia; I50.9 Heart failure, unspecified; I73.9 Peripheral vascular disease, unspecified; K80.20 Calculus of gallbladder without cholecystitis without obstruction; N18.9 Chronic kidney disease, unspecified; N39.0 Urinary tract infection, site not specified; R74.0 Nonspecific elevation of levels of transaminase and lactic acid dehydrogenase [LDH]; F19.90 Other psychoactive substance use, unspecified, uncomplicated; L03.90 Cellulitis, unspecified; Z98.891 History of uterine scar from previous surgery; Z79.899 Other long term (current) drug therapy
CPT/HCPCS: 36415; 49083; 71045; 80061; 80076; 80305; 81003; 82248; 83735; 83880; 84100; 84443; 84484; 84702; 87070; 87186; 93005; 93970; 96365; 99285; J0696; J1644; J1940; J3490

== ENCOUNTER 2019-01-12 17:59 | Emergency (ER) | payer MEDICAID ==
[~2019-01-12] VITALS: Ht 162.6 cm; Wt 89.0 kg
[2019-01-12 18:23] VITALS: BP 128/100
== END 2019-01-12 22:00 | disposition left against medical advice (07) ==
LOC: ER 17:59
DX: R06.02 Shortness of breath (principal); Z53.21 Procedure and treatment not carried out due to patient leaving prior to being seen by health care provider

== ENCOUNTER 2019-01-22 00:34 | Inpatient (IN) | payer MEDICAID ==
[~2019-01-22] VITALS: Ht 160 cm; Wt 83.0 kg
[2019-01-22] MEDS ORDERED: PIPERACILLIN/TAZOBACTAM 3.375GM/50ML PREMIX IV ONE (01:30)
[2019-01-22] MEDS ORDERED: FUROSEMIDE 20MG/2ML VIAL IVP ONE (01:30)
[2019-01-22] MEDS ORDERED: ASPIRIN 81MG TABLET PO ONE ×2 (01:30→04:45)
[2019-01-22] MEDS ORDERED: VANCOMYCIN 1 G PREMIX 200 ML IV SCH (01:30)
[2019-01-22] MEDS ORDERED: PIPERACILLIN/TAZ 3.375G PREMIX 50 ML IV NR (01:45)
[2019-01-22 02:07] LABS: BASOPHILS % 1.1 % (0.0-2.0); EOSINOPHILS % 0.4 % (0.0-5.0); HEMATOCRIT. 45.8 % (36.0-48.0); HEMOGLOBIN. 14.8 g/dL (12.0-16.0); LYMPHOCYTES % 15.4 % (20.0-50.0); MEAN CORPUSCULAR HEMOGLOBIN 26.9 pg (28.0-32.0); MEAN CORPUSCULAR VOLUME 83.5 fL (81.0-99.0); MONOCYTES % 10.8 % (2.0-8.0); NEUTROPHILS % 72.3 % (40.0-76.0); PLATELET 336 x1000/uL (130-400); RED BLOOD CELL COUNT 5.49 mill/uL (4.2-5.4); RED CELL DISTRIBUTION WIDTH 21.8 % (11.6-14.6)
[2019-01-22 02:08] LABS: CHLORIDE 104 mEq/L (98-107); INR 1.8
[2019-01-22 02:09] LABS: HCG SCREEN NEGATIVE
[2019-01-22] MEDS ORDERED: SODIUM CHLORIDE 0.9% 500 ML IV ONE (02:55)
[2019-01-22 06:30] LABS: CLARITY URINE CLEAR (CLEAR); COLOR URINE YELLOW (YELLOW); KETONES URINE NEGATIVE (NEGATIVE); LEUKOCYTE ESTERASE URINE 1+ (NEGATIVE); NITRITE URINE NEGATIVE (NEGATIVE); OCCULT BLOOD URINE NEGATIVE (NEGATIVE); PROTEIN URINE 1+ (NEGATIVE); SPECIFIC GRAVITY URINE 1.014 (1.005-1.030)
[2019-01-22 12:00] VITALS: BP 121/91
[2019-01-22] MEDS ORDERED: ONDANSETRON HCL 4MG/2ML INJ IV PRN (13:15)
[2019-01-22] MEDS ORDERED: IPRATROPIUM/ALBUTEROL 0.5-3(2.5)MG/3ML NEB HHN PRN (13:15)
[2019-01-22] MEDS ORDERED: HYDROCODONE/ACETAMINOPHEN 5/325MG TABLET PO PRN (13:15)
[2019-01-22] MEDS ORDERED: LORAZEPAM 0.5MG TABLET PO PRN (13:15)
[2019-01-22] MEDS ORDERED: ACETAMINOPHEN 325MG TABLET PO PRN (13:15)
[2019-01-22] MEDS ORDERED: CLONIDINE 0.1MG TABLET PO PRN (13:15)
[2019-01-22] MEDS ORDERED: LIDOCAINE HCL 1% 20ML VIAL (Pyxis) INJ ONE (14:43)
[2019-01-22] MEDS ORDERED: SODIUM BICARBONATE 4% (2.4MEQ) 5ML VIAL IV ONE (14:43)
[2019-01-22 16:00] VITALS: BP_SYST 119; BP_SYST 121; BP_DIAS 87; BP_DIAS 90
[2019-01-22 17:17] VITALS: BP 126/76
[2019-01-22 19:35] LABS: *BARBITURATES SCREEN URINE NEGATIVE (NEGATIVE); *BENZODIAZEPINES SCREEN URINE NEGATIVE (NEGATIVE); *COCAINE SCREEN URINE NEGATIVE (NEGATIVE); METHADONE URINE SCREEN NEGATIVE (NEGATIVE)
[2019-01-22 19:36] LABS: OPIATES URINE SCREEN NEGATIVE (NEGATIVE); PHENCYCLIDINE URINE SCREEN NEGATIVE (NEGATIVE)
[2019-01-22 19:38] LABS: *AMPHETAMINES SCREEN URINE PRESUMTIVE POSITIVE (NEGATIVE)
[2019-01-22 19:39] LABS: CANNABINOID URINE SCREEN PRESUMTIVE POSITIVE (NEGATIVE)
[2019-01-22 20:00] VITALS: BP 120/78
[2019-01-22] MEDS: CARVEDILOL 3.125 MG TABLET PO SCH (22:33)
[2019-01-22] MEDS: FUROSEMIDE 40MG/4ML VIAL IV SCH (23:29)
[2019-01-23] VITALS: BP 118/89
[2019-01-23 04:00] VITALS: BP 114/83
[2019-01-23 06:45] LABS: BASOPHILS % 1.4 % (0.0-2.0); EOSINOPHILS % 1.3 % (0.0-5.0); HEMATOCRIT. 41.4 % (36.0-48.0); HEMOGLOBIN. 13.3 g/dL (12.0-16.0); LYMPHOCYTES % 13.1 % (20.0-50.0); MEAN CORPUSCULAR HEMOGLOBIN 26.6 pg (28.0-32.0); MEAN CORPUSCULAR VOLUME 83.1 fL (81.0-99.0); MEAN PLATELET VOLUME 8.9 fl (7.4-10.4); MONOCYTES % 10.5 % (2.0-8.0); NEUTROPHILS % 73.7 % (40.0-76.0); PLATELET 270 x1000/uL (130-400); RED BLOOD CELL COUNT 4.98 mill/uL (4.2-5.4); RED CELL DISTRIBUTION WIDTH 21.5 % (11.6-14.6)
[2019-01-23 06:48] LABS: PHOSPHORUS 4.2 mg/dL (2.5-4.9)
[2019-01-23 08:00] VITALS: BP 113/78
[2019-01-23] MEDS: ASPIRIN 81MG EC TABLET PO SCH (09:20)
[2019-01-23] MEDS: CARVEDILOL 3.125 MG TABLET PO SCH ×2 (09:20→21:00)
[2019-01-23] MEDS: FUROSEMIDE 40MG/4ML VIAL IV SCH ×2 (09:20→17:56)
[2019-01-23 12:00] VITALS: BP 125/85
[2019-01-23 16:00] VITALS: BP 118/68
[2019-01-23 20:00] VITALS: BP 111/83
[2019-01-24] VITALS (7 sets, daily range): BP systolic 115–121; BP diastolic 72–87
[2019-01-24 06:28] LABS: BASOPHILS % 1.5 % (0.0-2.0); EOSINOPHILS % 1.7 % (0.0-5.0); HEMATOCRIT. 41.2 % (36.0-48.0); HEMOGLOBIN. 13.2 g/dL (12.0-16.0); LYMPHOCYTES % 12.5 % (20.0-50.0); MEAN CORPUSCULAR HEMOGLOBIN 26.8 pg (28.0-32.0); MEAN CORPUSCULAR VOLUME 83.4 fL (81.0-99.0); MEAN PLATELET VOLUME 8.9 fl (7.4-10.4); MONOCYTES % 9.8 % (2.0-8.0); NEUTROPHILS % 74.5 % (40.0-76.0); PLATELET 271 x1000/uL (130-400); RED BLOOD CELL COUNT 4.94 mill/uL (4.2-5.4); RED CELL DISTRIBUTION WIDTH 21.4 % (11.6-14.6)
[2019-01-24] MEDS: CARVEDILOL 3.125 MG TABLET PO SCH ×2 (09:04→21:57)
[2019-01-24] MEDS: ASPIRIN 81MG EC TABLET PO SCH (09:04)
[2019-01-24] MEDS: FUROSEMIDE 40MG/4ML VIAL IV SCH ×2 (09:04→17:47)
[2019-01-24] MEDS ORDERED: MAGNESIUM 4 G PREMIX 100 ML IV SCH (15:00)
[2019-01-24] MEDS ORDERED: IPRATROPIUM/ALBUTEROL 0.5-3(2.5)MG/3ML NEB HHN PRN (22:30)
[2019-01-25] VITALS: BP 123/80
[2019-01-25 04:00] VITALS: BP 125/79
[2019-01-25 05:28] LABS: BASOPHILS % 1.5 % (0.0-2.0); EOSINOPHILS % 1.4 % (0.0-5.0); HEMATOCRIT. 39.5 % (36.0-48.0); HEMOGLOBIN. 12.9 g/dL (12.0-16.0); LYMPHOCYTES % 10.5 % (20.0-50.0); MEAN CORPUSCULAR VOLUME 82.7 fL (81.0-99.0); MEAN PLATELET VOLUME 8.7 fl (7.4-10.4); MONOCYTES % 9.6 % (2.0-8.0); PLATELET 272 x1000/uL (130-400); RED BLOOD CELL COUNT 4.78 mill/uL (4.2-5.4); RED CELL DISTRIBUTION WIDTH 21.2 % (11.6-14.6)
[2019-01-25 05:45] LABS: PHOSPHORUS 2.1 mg/dL (2.5-4.9)
[2019-01-25 08:00] VITALS: BP_SYST 121; BP_DIAS 54; BP_DIAS 84
[2019-01-25] MEDS: CARVEDILOL 3.125 MG TABLET PO SCH ×2 (08:55→21:50)
[2019-01-25] MEDS: FUROSEMIDE 40MG/4ML VIAL IV SCH ×2 (08:55→16:44)
[2019-01-25] MEDS: ASPIRIN 81MG EC TABLET PO SCH (08:55)
[2019-01-25 12:00] VITALS: BP 145/86
[2019-01-25 16:00] VITALS: BP 119/87
[2019-01-25 20:00] VITALS: BP 124/89
[2019-01-25] MEDS ORDERED: POTASSIUM CHLORIDE 20MEQ TABLET SR PO NR (22:15)
[2019-01-25] MEDS ORDERED: MAGNESIUM 2 G PREMIX 50 ML IV SCH (23:30)
[2019-01-26] VITALS: BP 108/82
[2019-01-26 04:00] VITALS: BP 104/82
[2019-01-26 08:00] VITALS: BP 129/95
[2019-01-26] MEDS: ASPIRIN 81MG EC TABLET PO SCH (09:59)
[2019-01-26] MEDS: CARVEDILOL 3.125 MG TABLET PO SCH (09:59)
[2019-01-26] MEDS: FUROSEMIDE 40MG/4ML VIAL IV SCH (10:00)
[2019-01-26 12:00] VITALS: BP 116/86
[2019-01-26 15:21] VITALS: BP 116/86
== END 2019-01-26 16:58 | disposition home or self-care (01) | DRG 194 ==
LOC: ER 01:05 → 7WST 04:37 → EDBEDREQ 05:01 → EDBEDREQTM 05:01 → ENRESERV 10:16
PROVIDERS: ADMIT Internal Medicine; ATTEND Internal Medicine
PROC: 0W9G3ZZ Drainage of Peritoneal Cavity, Percutaneous Approach (ICD-10-PCS; principal; 2019-01-24)
DX: I13.0 Hypertensive heart and chronic kidney disease with heart failure and stage 1 through stage 4 chronic kidney disease, or unspecified chronic kidney disease (principal); E87.2 Acidosis; D68.9 Coagulation defect, unspecified; I27.20 Pulmonary hypertension, unspecified; S32.591A Other specified fracture of right pubis, initial encounter for closed fracture; I07.1 Rheumatic tricuspid insufficiency; R18.8 Other ascites; I50.23 Acute on chronic systolic (congestive) heart failure; S32.10XA Unspecified fracture of sacrum, initial encounter for closed fracture; I42.0 Dilated cardiomyopathy; F15.10 Other stimulant abuse, uncomplicated; I89.0 Lymphedema, not elsewhere classified; J44.9 Chronic obstructive pulmonary disease, unspecified; K76.9 Liver disease, unspecified; L97.529 Non-pressure chronic ulcer of other part of left foot with unspecified severity; N18.9 Chronic kidney disease, unspecified; D72.821 Monocytosis (symptomatic); E78.5 Hyperlipidemia, unspecified; I50.22 Chronic systolic (congestive) heart failure; K80.20 Calculus of gallbladder without cholecystitis without obstruction; L03.114 Cellulitis of left upper limb; L03.113 Cellulitis of right upper limb; F12.10 Cannabis abuse, uncomplicated; R80.9 Proteinuria, unspecified; R74.0 Nonspecific elevation of levels of transaminase and lactic acid dehydrogenase [LDH]; R16.0 Hepatomegaly, not elsewhere classified; M51.36 Other intervertebral disc degeneration, lumbar region; L03.116 Cellulitis of left lower limb; X58.XXXA Exposure to other specified factors, initial encounter; Y93.89 Activity, other specified; Y92.89 Other specified places as the place of occurrence of the external cause; Y99.8 Other external cause status; Z59.0 Homelessness; Z79.899 Other long term (current) drug therapy; Z87.891 Personal history of nicotine dependence; Z98.891 History of uterine scar from previous surgery; Z79.82 Long term (current) use of aspirin; Z91.81 History of falling
CPT/HCPCS: 36415; 49083; 71045; 74176; 80048; 80305; 81003; 83605; 83735; 83880; 84100; 84145; 84484; 84703; 93005; 93970; 99285; J1940; J2543; J3370; J3475; J3490; J7030; J7040; J7620

== ENCOUNTER 2019-03-27 21:40 | Inpatient (IN) | payer MEDICAID ==
[~2019-03-27] VITALS: Ht 162.6 cm; Wt 86.2 kg
[2019-03-27] MEDS ORDERED: FUROSEMIDE 40MG/4ML VIAL IV ONE (23:30)
[2019-03-27 23:59] LABS: CLARITY URINE CLOUDY (CLEAR); COLOR URINE DARK YELLOW (YELLOW); KETONES URINE NEGATIVE (NEGATIVE); LEUKOCYTE ESTERASE URINE 2+ (NEGATIVE); NITRITE URINE NEGATIVE (NEGATIVE); OCCULT BLOOD URINE NEGATIVE (NEGATIVE); PROTEIN URINE 2+ (NEGATIVE); SPECIFIC GRAVITY URINE 1.023 (1.005-1.030)
[2019-03-28 00:22] LABS: BASOPHILS % 0.8 % (0.0-2.0); EOSINOPHILS % 0.5 % (0.0-5.0); HEMATOCRIT. 43.9 % (36.0-48.0); HEMOGLOBIN. 14.2 g/dL (12.0-16.0); LYMPHOCYTES % 10.2 % (20.0-50.0); MEAN CORPUSCULAR HEMOGLOBIN 28.3 pg (28.0-32.0); MEAN CORPUSCULAR VOLUME 87.4 fL (81.0-99.0); MEAN PLATELET VOLUME 8.6 fl (7.4-10.4); MONOCYTES % 6.6 % (2.0-8.0); NEUTROPHILS % 81.9 % (40.0-76.0); PLATELET 280 x1000/uL (130-400); RED BLOOD CELL COUNT 5.03 mill/uL (4.2-5.4); RED CELL DISTRIBUTION WIDTH 20.6 % (11.6-14.6)
[2019-03-28 00:28] LABS: CHLORIDE 102 mEq/L (98-107)
[2019-03-28 00:30] LABS: INR 1.3; PROTHROMBIN TIME 13.7 sec (9.6-11.0)
[2019-03-28] MEDS ORDERED: CEFTRIAXONE 2 G PREMIX 50 ML IV NR (00:45)
[2019-03-28] MEDS ORDERED: ACETAMINOPHEN 325MG TABLET PO PRN (08:30)
[2019-03-28] MEDS ORDERED: ONDANSETRON HCL 4MG/2ML INJ IV PRN (08:30)
[2019-03-28 10:00] VITALS: BP 130/103
[2019-03-28] MEDS: ENOXAPARIN 30MG/0.3ML SYR SUBCUT SCH ×2 (10:45→21:08)
[2019-03-28] MEDS: FUROSEMIDE 40MG/4ML VIAL IVP SCH ×2 (10:45→16:37)
[2019-03-28] MEDS: CARVEDILOL 6.25 MG TABLET PO SCH ×2 (10:46→21:00)
[2019-03-28] MEDS: LOSARTAN POTASSIUM 25 MG TABLET PO SCH (10:46)
[2019-03-28 12:00] VITALS: BP 126/78
[2019-03-28 13:56] LABS: *BARBITURATES SCREEN URINE NEGATIVE (NEGATIVE); *BENZODIAZEPINES SCREEN URINE NEGATIVE (NEGATIVE); METHADONE URINE SCREEN NEGATIVE (NEGATIVE); OPIATES URINE SCREEN NEGATIVE (NEGATIVE)
[2019-03-28 13:57] LABS: PHENCYCLIDINE URINE SCREEN NEGATIVE (NEGATIVE)
[2019-03-28 13:58] LABS: *COCAINE SCREEN URINE NEGATIVE (NEGATIVE)
[2019-03-28 14:20] LABS: *AMPHETAMINES SCREEN URINE PRESUMTIVE POSITIVE (NEGATIVE); CANNABINOID URINE SCREEN PRESUMTIVE POSITIVE (NEGATIVE)
[2019-03-28 16:00] VITALS: BP 96/79
[2019-03-28] MEDS: KETOROLAC 30MG/ML VIAL IV PRN (18:48)
[2019-03-28 20:00] VITALS: BP 99/74
[2019-03-29] VITALS: BP 110/79
[2019-03-29] MEDS: KETOROLAC 30MG/ML VIAL IV PRN ×3 (01:28→14:39)
[2019-03-29 04:00] VITALS: BP 122/69
[2019-03-29 06:36] LABS: BASOPHILS % 0.9 % (0.0-2.0); HEMATOCRIT. 39.7 % (36.0-48.0); HEMOGLOBIN. 12.8 g/dL (12.0-16.0); LYMPHOCYTES % 8.7 % (20.0-50.0); MEAN CORPUSCULAR HEMOGLOBIN 28.4 pg (28.0-32.0); MONOCYTES % 5.2 % (2.0-8.0); NEUTROPHILS % 83.2 % (40.0-76.0); PLATELET 238 x1000/uL (130-400); RED BLOOD CELL COUNT 4.51 mill/uL (4.2-5.4); RED CELL DISTRIBUTION WIDTH 20.7 % (11.6-14.6)
[2019-03-29 08:00] VITALS: BP 98/67
[2019-03-29] MEDS: ENOXAPARIN 30MG/0.3ML SYR SUBCUT SCH ×2 (08:44→21:16)
[2019-03-29] MEDS: LOSARTAN POTASSIUM 25 MG TABLET PO SCH (08:44)
[2019-03-29] MEDS: CARVEDILOL 6.25 MG TABLET PO SCH ×2 (08:45→21:00)
[2019-03-29] MEDS: FUROSEMIDE 40MG/4ML VIAL IVP SCH ×2 (08:55→17:08)
[2019-03-29 12:00] VITALS: BP 119/70
[2019-03-29 16:00] VITALS: BP 105/78
[2019-03-29 20:00] VITALS: BP 103/75
[2019-03-30] VITALS: BP 118/81
[2019-03-30] MEDS: KETOROLAC 30MG/ML VIAL IV PRN ×3 (01:19→21:16)
[2019-03-30 04:00] VITALS: BP 118/87
[2019-03-30 08:00] VITALS: BP 119/85
[2019-03-30 08:05] LABS: BASOPHILS % 1.1 % (0.0-2.0); EOSINOPHILS % 1.7 % (0.0-5.0); HEMATOCRIT. 37.9 % (36.0-48.0); HEMOGLOBIN. 12.3 g/dL (12.0-16.0); LYMPHOCYTES % 7.9 % (20.0-50.0); MEAN CORPUSCULAR HEMOGLOBIN 28.2 pg (28.0-32.0); MEAN PLATELET VOLUME 9.1 fl (7.4-10.4); NEUTROPHILS % 83.3 % (40.0-76.0); PLATELET 249 x1000/uL (130-400); RED BLOOD CELL COUNT 4.36 mill/uL (4.2-5.4); RED CELL DISTRIBUTION WIDTH 19.9 % (11.6-14.6)
[2019-03-30] MEDS: ENOXAPARIN 30MG/0.3ML SYR SUBCUT SCH ×2 (08:54→21:14)
[2019-03-30] MEDS: LOSARTAN POTASSIUM 25 MG TABLET PO SCH (08:54)
[2019-03-30] MEDS: CARVEDILOL 6.25 MG TABLET PO SCH ×2 (08:54→21:00)
[2019-03-30] MEDS: FUROSEMIDE 40MG/4ML VIAL IVP SCH ×2 (08:54→16:03)
[2019-03-30 12:00] VITALS: BP 101/71
[2019-03-30 16:00] VITALS: BP 108/75
[2019-03-30 20:00] VITALS: BP 109/79
[2019-03-30] MEDS: BUDESONIDE 0.5MG/2ML NEB HHN SCH (21:44)
[2019-03-30] MEDS: IPRATROPIUM/ALBUTEROL 0.5-3(2.5)MG/3ML NEB HHN PRN (21:44)
[2019-03-31] VITALS: BP 116/81
[2019-03-31 04:00] VITALS: BP 113/65
[2019-03-31 08:00] VITALS: BP 121/90
[2019-03-31] MEDS: ENOXAPARIN 30MG/0.3ML SYR SUBCUT SCH ×2 (09:00→19:51)
[2019-03-31] MEDS: BUDESONIDE 0.5MG/2ML NEB HHN SCH (09:25)
[2019-03-31] MEDS: IPRATROPIUM/ALBUTEROL 0.5-3(2.5)MG/3ML NEB HHN PRN (09:25)
[2019-03-31] MEDS: LOSARTAN POTASSIUM 25 MG TABLET PO SCH (10:38)
[2019-03-31] MEDS: FUROSEMIDE 40MG/4ML VIAL IVP SCH ×2 (10:38→18:05)
[2019-03-31] MEDS: CARVEDILOL 6.25 MG TABLET PO SCH ×2 (10:39→21:00)
[2019-03-31 11:08] LABS: INR 1.4; PROTHROMBIN TIME 13.8 sec (9.6-11.0)
[2019-03-31 12:00] VITALS: BP 110/78
[2019-03-31] MEDS: KETOROLAC 30MG/ML VIAL IV PRN (14:15)
[2019-03-31 16:00] VITALS: BP 97/57
[2019-03-31 20:00] VITALS: BP 102/79
[2019-04-01] VITALS: BP 113/80
[2019-04-01] MEDS: KETOROLAC 30MG/ML VIAL IV PRN ×2 (00:01→14:43)
[2019-04-01 04:00] VITALS: BP 103/62
[2019-04-01 08:00] VITALS: BP 124/93
[2019-04-01] MEDS: FUROSEMIDE 40MG/4ML VIAL IVP SCH ×2 (08:24→16:18)
[2019-04-01] MEDS: ENOXAPARIN 30MG/0.3ML SYR SUBCUT SCH ×2 (08:25→21:36)
[2019-04-01] MEDS: LOSARTAN POTASSIUM 25 MG TABLET PO SCH (08:25)
[2019-04-01] MEDS: CARVEDILOL 6.25 MG TABLET PO SCH ×2 (08:25→21:36)
[2019-04-01] MEDS ORDERED: SODIUM BICARBONATE 4% (2.4MEQ) 5ML VIAL IV ONE (11:24)
[2019-04-01] MEDS ORDERED: LIDOCAINE HCL 1% 20ML VIAL (Pyxis) INJ ONE (11:24)
[2019-04-01 12:25] VITALS: BP 106/77
[2019-04-01 16:00] VITALS: BP 113/81
[2019-04-01 20:00] VITALS: BP 118/88
[2019-04-02] VITALS: BP 103/70
[2019-04-02 04:00] VITALS: BP 94/67
[2019-04-02] MEDS ORDERED: LOSA25TA3 PO (07:46)
[2019-04-02] MEDS ORDERED: COR6 PO (07:46)
[2019-04-02 08:00] VITALS: BP 122/86
[2019-04-02] MEDS: FUROSEMIDE 40MG/4ML VIAL IVP SCH (08:38)
[2019-04-02] MEDS: ENOXAPARIN 30MG/0.3ML SYR SUBCUT SCH (08:38)
[2019-04-02] MEDS: LOSARTAN POTASSIUM 25 MG TABLET PO SCH (08:39)
[2019-04-02] MEDS: CARVEDILOL 6.25 MG TABLET PO SCH (08:39)
[2019-04-02 11:21] VITALS: BP 102/75
[2019-04-02 12:00] VITALS: BP 102/75
== END 2019-04-02 15:30 | disposition home or self-care (01) ==
LOC: ER 21:40 → 7WST 03-28 04:54 → EDBEDREQ 03-28 04:56 → EDBEDREQTM 03-28 04:56 → ENRESERV 03-28 08:13
PROVIDERS: ADMIT Internal Medicine; ATTEND Internal Medicine
PROC: 0W9G3ZZ Drainage of Peritoneal Cavity, Percutaneous Approach (ICD-10-PCS; principal; 2019-04-01)
DX: R18.8 Other ascites (principal); J96.20 Acute and chronic respiratory failure, unspecified whether with hypoxia or hypercapnia; E43 Unspecified severe protein-calorie malnutrition; I50.23 Acute on chronic systolic (congestive) heart failure; I42.9 Cardiomyopathy, unspecified; I11.0 Hypertensive heart disease with heart failure; K74.60 Unspecified cirrhosis of liver; E87.1 Hypo-osmolality and hyponatremia; F15.90 Other stimulant use, unspecified, uncomplicated; R74.0 Nonspecific elevation of levels of transaminase and lactic acid dehydrogenase [LDH]; F16.90 Hallucinogen use, unspecified, uncomplicated; F17.210 Nicotine dependence, cigarettes, uncomplicated; J44.9 Chronic obstructive pulmonary disease, unspecified; Z87.01 Personal history of pneumonia (recurrent); Z79.899 Other long term (current) drug therapy; Z79.82 Long term (current) use of aspirin; Z68.32 Body mass index [BMI] 32.0-32.9, adult; Z71.51 Drug abuse counseling and surveillance of drug abuser; Z98.891 History of uterine scar from previous surgery
CPT/HCPCS: 36415; 49083; 71045; 80048; 80053; 80305; 81003; 83880; 84145; 84484; 85025; 93005; 94640; 99285; A6261; C1893; J0696; J1650; J1885; J1940; J3490; J7040; J7620; J7626

== ENCOUNTER 2019-05-03 10:26 | Inpatient (IN) | payer MEDICAID ==
[~2019-05-03] VITALS: Ht 162.6 cm; Wt 89.4 kg
[~2019-05-03 10:26] MED LIST changes: -ASPI-1158 PO; -CARV3.1242 MT; +COR6 PO; -LISI2.5T47 MT; +LOSA25TA3 PO
[2019-05-03] MEDS ORDERED: ONDANSETRON HCL 4MG/2ML INJ IV STA (11:15)
[2019-05-03] MEDS ORDERED: MORPHINE SULFATE 4 MG/ML CPJ (NOT FOR IM USE) IV STA (11:15)
[2019-05-03 13:12] LABS: CLARITY URINE CLOUDY (CLEAR); COLOR URINE YELLOW (YELLOW); KETONES URINE NEGATIVE (NEGATIVE); LEUKOCYTE ESTERASE URINE 2+ (NEGATIVE); NITRITE URINE NEGATIVE (NEGATIVE); OCCULT BLOOD URINE TRACE (NEGATIVE); PH URINE 5.5 (4.5-8.0); PROTEIN URINE 2+ (NEGATIVE); SPECIFIC GRAVITY URINE 1.021 (1.005-1.030)
[2019-05-03 13:33] LABS: BASOPHILS % 0.9 % (0.0-2.0); EOSINOPHILS % 0.4 % (0.0-5.0); HEMOGLOBIN. 15.3 g/dL (12.0-16.0); LYMPHOCYTES % 13.6 % (20.0-50.0); MEAN CORPUSCULAR HEMOGLOBIN 28.4 pg (28.0-32.0); MEAN CORPUSCULAR VOLUME 87.5 fL (81.0-99.0); MEAN PLATELET VOLUME 9.2 fl (7.4-10.4); MONOCYTES % 9.6 % (2.0-8.0); NEUTROPHILS % 75.5 % (40.0-76.0); PLATELET 269 x1000/uL (130-400); RED BLOOD CELL COUNT 5.37 mill/uL (4.2-5.4); RED CELL DISTRIBUTION WIDTH 20.1 % (11.6-14.6)
[2019-05-03 13:40] LABS: CHLORIDE 102 mEq/L (98-107)
[2019-05-03 13:48] LABS: HCG SCREEN NEGATIVE
[2019-05-03] MEDS ORDERED: SODIUM BICARBONATE 8.4% 1 MEQ/ML 50ML SYR IV ONE (14:00)
[2019-05-03] MEDS ORDERED: INSULIN REGULAR (HUMULIN R) 300UNITS/3ML IV ONE (14:00)
[2019-05-03] MEDS ORDERED: ALBUTEROL (0.083%) 2.5MG/3ML NEB HHN ONE (14:00)
[2019-05-03] MEDS ORDERED: DEXTROSE 50% WATER 50ML SYRINGE IV ONE (14:00)
[2019-05-03] MEDS ORDERED: SODIUM POLYSTYRENE SULFONATE 15 G/60 ML BOT PO ONE (14:00)
[2019-05-03 14:24] LABS: INR 1.9; PROTHROMBIN TIME 18.9 sec (9.6-11.0)
[2019-05-03] MEDS ORDERED: PIPERACILLIN/TAZ 3.375G PREMIX 50 ML IV ONE (14:45)
[2019-05-03] MEDS ORDERED: LIDOCAINE HCL 1% 20ML VIAL (Pyxis) INJ ONE (14:58)
[2019-05-03] MEDS ORDERED: SODIUM BICARBONATE 4% (2.4MEQ) 5ML VIAL IV ONE (14:58)
[2019-05-03] MEDS ORDERED: IPRATROPIUM/ALBUTEROL 0.5-3(2.5)MG/3ML NEB HHN PRN (15:15)
[2019-05-03] MEDS ORDERED: CLONIDINE 0.1MG TABLET PO PRN (15:15)
[2019-05-03] MEDS ORDERED: ONDANSETRON HCL 4MG/2ML INJ IV PRN (15:15)
[2019-05-03 16:03] LABS: PHOSPHORUS 5.6 mg/dL (2.5-4.9)
[2019-05-03] MEDS ORDERED: CEFTRIAXONE 1 G PREMIX 50 ML IV NR (17:30)
[2019-05-03] MEDS: DIPHENHYDRAMINE 50MG/ML VIAL IV PRN (20:56)
[2019-05-03 22:45] VITALS: BP 140/102
[2019-05-03 23:58] VITALS: BP 140/102
[2019-05-04 00:21] VITALS: BP 128/89
[2019-05-04] MEDS: DIPHENHYDRAMINE 50MG/ML VIAL IV PRN (03:08)
[2019-05-04 04:00] VITALS: BP 121/92
[2019-05-04] MEDS: HYDROCODONE/ACETAMINOPHEN 5/325MG TABLET PO PRN (06:42)
[2019-05-04 07:31] LABS: HEMOGLOBIN. 14.1 g/dL (12.0-16.0); MEAN CORPUSCULAR HEMOGLOBIN 28.5 pg (28.0-32.0); MEAN PLATELET VOLUME 9.6 fl (7.4-10.4); PLATELET 238 x1000/uL (130-400); RED BLOOD CELL COUNT 4.94 mill/uL (4.2-5.4); RED CELL DISTRIBUTION WIDTH 19.6 % (11.6-14.6)
[2019-05-04 08:00] VITALS: BP 137/94
[2019-05-04 08:09] LABS: CHLORIDE 104 mEq/L (98-107)
[2019-05-04 08:16] LABS: LDL CHOLESTEROL 87 mg/dL (5-100)
[2019-05-04 08:17] LABS: HDL CHOLESTEROL 27 mg/dL (40-59)
[2019-05-04 12:00] VITALS: BP 114/89
[2019-05-04] MEDS: CEFTRIAXONE 1 G PREMIX 50 ML IV SCH (14:13)
[2019-05-04 16:00] VITALS: BP 119/95
[2019-05-04] MEDS: LACTULOSE 20G/30ML UDC PO SCH (16:29)
[2019-05-04 20:00] VITALS: BP 127/94
[2019-05-04 22:50] LABS: PLATELET ESTIMATE NORMAL
[2019-05-05] VITALS: BP 121/89
[2019-05-05 04:00] VITALS: BP 120/91
[2019-05-05] MEDS: HYDROCODONE/ACETAMINOPHEN 5/325MG TABLET PO PRN ×2 (05:33→16:48)
[2019-05-05 07:09] LABS: BASOPHILS % 1.1 % (0.0-2.0); EOSINOPHILS % 1.2 % (0.0-5.0); HEMATOCRIT. 42.8 % (36.0-48.0); LYMPHOCYTES % 11.3 % (20.0-50.0); MEAN CORPUSCULAR HEMOGLOBIN 28.4 pg (28.0-32.0); MEAN CORPUSCULAR VOLUME 87.2 fL (81.0-99.0); MEAN PLATELET VOLUME 9.1 fl (7.4-10.4); MONOCYTES % 9.3 % (2.0-8.0); NEUTROPHILS % 77.1 % (40.0-76.0); PLATELET 245 x1000/uL (130-400); RED BLOOD CELL COUNT 4.91 mill/uL (4.2-5.4); RED CELL DISTRIBUTION WIDTH 19.6 % (11.6-14.6)
[2019-05-05 07:51] VITALS: BP 126/90
[2019-05-05] MEDS: LACTULOSE 20G/30ML UDC PO SCH ×2 (08:16→16:47)
[2019-05-05 11:41] LABS: T4 FREE 1.04 ng/dL (0.76-1.46)
[2019-05-05 11:46] VITALS: BP 122/98
[2019-05-05 14:01] LABS: HEPATITIS B SURFACE ANTIGEN NEGATIVE
[2019-05-05 14:31] LABS: HEPATITIS A AB IGM NEGATIVE (NEGATIVE)
[2019-05-05] MEDS: CEFTRIAXONE 1 G PREMIX 50 ML IV SCH (15:07)
[2019-05-05 15:39] VITALS: BP 132/98
[2019-05-05 20:00] VITALS: BP 130/88
[2019-05-06] VITALS (7 sets, daily range): BP systolic 110–142; BP diastolic 64–116
[2019-05-06 06:08] LABS: BASOPHILS % 0.8 % (0.0-2.0); HEMATOCRIT. 44.1 % (36.0-48.0); HEMOGLOBIN. 14.2 g/dL (12.0-16.0); LYMPHOCYTES % 12.1 % (20.0-50.0); MEAN CORPUSCULAR HEMOGLOBIN 28.5 pg (28.0-32.0); MEAN CORPUSCULAR VOLUME 88.8 fL (81.0-99.0); MEAN PLATELET VOLUME 9.1 fl (7.4-10.4); MONOCYTES % 10.4 % (2.0-8.0); NEUTROPHILS % 75.7 % (40.0-76.0); PLATELET 234 x1000/uL (130-400); RED BLOOD CELL COUNT 4.96 mill/uL (4.2-5.4); RED CELL DISTRIBUTION WIDTH 19.9 % (11.6-14.6)
[2019-05-06] MEDS: HYDROCODONE/ACETAMINOPHEN 5/325MG TABLET PO PRN ×2 (06:44→20:59)
[2019-05-06] MEDS ORDERED: SODIUM BICARBONATE 8.4% 1 MEQ/ML 50ML SYR IV NR (07:32)
[2019-05-06] MEDS ORDERED: INSULIN REGULAR (HUMULIN R) UD 100 UNITS/ML SYR IV NR (07:32)
[2019-05-06] MEDS ORDERED: DEXTROSE 50% WATER 50ML SYRINGE IV NR (07:32)
[2019-05-06] MEDS ORDERED: SODIUM POLYSTYRENE SULFONATE 15 G/60 ML BOT PO NR (07:32)
[2019-05-06] MEDS: LACTULOSE 20G/30ML UDC PO SCH ×2 (08:34→19:12)
[2019-05-06] MEDS: CITRIC ACID/SODIUM CITRATE SOLN 30ML UDC PO SCH ×3 (08:34→19:12)
[2019-05-06] MEDS ORDERED: AMOX250S70 MT (09:42)
[2019-05-06] MEDS ORDERED: AMPICILLIN SOD/SULBACTAM NA 3 G in SODIUM CHLORIDE 0.9% 100 ML IV SCH (12:00)
[2019-05-06] MEDS: METOPROLOL TARTRATE 25MG TABLET PO SCH (23:29)
[2019-05-07] VITALS: BP 152/107
[2019-05-07] MEDS: MEROPENEM 500 MG in SODIUM CHLORIDE 0.9% 50 ML IV SCH ×3 (03:07→17:32)
[2019-05-07 04:00] VITALS: BP 117/91
[2019-05-07] MEDS: FUROSEMIDE 40MG/4ML VIAL IVP SCH ×2 (06:40→17:32)
[2019-05-07] MEDS: HYDROCODONE/ACETAMINOPHEN 5/325MG TABLET PO PRN ×2 (06:42→17:42)
[2019-05-07 08:00] VITALS: BP 115/85
[2019-05-07] MEDS: CITRIC ACID/SODIUM CITRATE SOLN 30ML UDC PO SCH (08:45)
[2019-05-07] MEDS: LACTULOSE 20G/30ML UDC PO SCH ×2 (08:45→17:31)
[2019-05-07 08:46] LABS: BASOPHILS % 0.9 % (0.0-2.0); EOSINOPHILS % 1.5 % (0.0-5.0); HEMATOCRIT. 46.6 % (36.0-48.0); HEMOGLOBIN. 14.9 g/dL (12.0-16.0); LYMPHOCYTES % 11.4 % (20.0-50.0); MEAN CORPUSCULAR HEMOGLOBIN 28.2 pg (28.0-32.0); MEAN CORPUSCULAR VOLUME 88.6 fL (81.0-99.0); MEAN PLATELET VOLUME 8.8 fl (7.4-10.4); MONOCYTES % 10.8 % (2.0-8.0); NEUTROPHILS % 75.4 % (40.0-76.0); PLATELET 243 x1000/uL (130-400); RED BLOOD CELL COUNT 5.26 mill/uL (4.2-5.4); RED CELL DISTRIBUTION WIDTH 20.4 % (11.6-14.6)
[2019-05-07] MEDS: METOPROLOL TARTRATE 25MG TABLET PO SCH ×2 (08:46→21:11)
[2019-05-07 12:00] VITALS: BP 124/81
[2019-05-07 12:44] LABS: INR 1.5; PROTHROMBIN TIME 15.4 sec (9.6-11.0)
[2019-05-07 16:00] VITALS: BP 125/99
[2019-05-07 20:00] VITALS: BP 118/82
[2019-05-08] VITALS: BP 124/86
[2019-05-08] MEDS: MEROPENEM 500 MG in SODIUM CHLORIDE 0.9% 50 ML IV SCH ×3 (00:51→21:52)
[2019-05-08 04:00] VITALS: BP 124/86
[2019-05-08] MEDS: FUROSEMIDE 40MG/4ML VIAL IVP SCH ×2 (06:29→18:52)
[2019-05-08 07:21] LABS: BASOPHILS % 2.2 % (0.0-2.0); EOSINOPHILS % 2.9 % (0.0-5.0); HEMATOCRIT. 44.9 % (36.0-48.0); HEMOGLOBIN. 14.8 g/dL (12.0-16.0); LYMPHOCYTES % 14.3 % (20.0-50.0); NEUTROPHILS % 68.6 % (40.0-76.0); PLATELET 227 x1000/uL (130-400); RED CELL DISTRIBUTION WIDTH 20.1 % (11.6-14.6)
[2019-05-08] MEDS ORDERED: SODIUM BICARBONATE 4% (2.4MEQ) 5ML VIAL IV ONE (09:09)
[2019-05-08] MEDS ORDERED: LIDOCAINE HCL 1% 20ML VIAL (Pyxis) INJ ONE (09:09)
[2019-05-08 12:00] VITALS: BP 118/90
[2019-05-08] MEDS: LINEZOLID 600 MG PREMIX 300 ML IV SCH ×2 (12:40→21:53)
[2019-05-08] MEDS: METOPROLOL TARTRATE 25MG TABLET PO SCH ×2 (12:46→21:51)
[2019-05-08] MEDS: LACTULOSE 20G/30ML UDC PO SCH ×3 (12:47→18:52)
[2019-05-08 16:00] VITALS: BP 106/72
[2019-05-08 20:00] VITALS: BP 112/85
[2019-05-08] MEDS ORDERED: MEROPENEM 500 MG in SODIUM CHLORIDE 0.9% 50 ML IV SCH (20:00)
[2019-05-08] MEDS: HYDROCODONE/ACETAMINOPHEN 5/325MG TABLET PO PRN (21:52)
[2019-05-09] VITALS: BP 109/73
[2019-05-09 04:00] VITALS: BP 100/60
[2019-05-09] MEDS: FUROSEMIDE 40MG/4ML VIAL IVP SCH ×2 (06:19→17:08)
[2019-05-09] MEDS: MEROPENEM 500 MG in SODIUM CHLORIDE 0.9% 50 ML IV SCH ×3 (06:19→23:56)
[2019-05-09 06:54] LABS: BASOPHILS % 1.2 % (0.0-2.0); HEMATOCRIT. 41.3 % (36.0-48.0); HEMOGLOBIN. 13.5 g/dL (12.0-16.0); LYMPHOCYTES % 13.2 % (20.0-50.0); MEAN CORPUSCULAR HEMOGLOBIN 28.5 pg (28.0-32.0); MEAN PLATELET VOLUME 8.4 fl (7.4-10.4); MONOCYTES % 11.8 % (2.0-8.0); NEUTROPHILS % 70.8 % (40.0-76.0); PLATELET 188 x1000/uL (130-400); RED BLOOD CELL COUNT 4.75 mill/uL (4.2-5.4); RED CELL DISTRIBUTION WIDTH 19.8 % (11.6-14.6)
[2019-05-09 08:00] VITALS: BP 123/86
[2019-05-09] MEDS: METOPROLOL TARTRATE 25MG TABLET PO SCH ×2 (09:15→21:00)
[2019-05-09] MEDS: LACTULOSE 20G/30ML UDC PO SCH ×2 (09:15→17:08)
[2019-05-09] MEDS: LINEZOLID 600 MG PREMIX 300 ML IV SCH ×2 (09:16→21:11)
[2019-05-09] MEDS: ACETAMINOPHEN 325MG TABLET PO PRN ×2 (09:36→21:13)
[2019-05-09] MEDS ORDERED: POTASSIUM CHLORIDE 20MEQ TABLET SR PO NR (10:30)
[2019-05-09 12:00] VITALS: BP 116/87
[2019-05-09] MEDS ORDERED: LIDOCAINE HCL/PF 2% 20MG/ML 5 ML/VIAL INJ NR (12:10)
[2019-05-09 16:00] VITALS: BP 104/72
[2019-05-09 20:00] VITALS: BP 91/69
[2019-05-10] VITALS: BP 126/81
[2019-05-10] MEDS: ACETAMINOPHEN 325MG TABLET PO PRN (03:37)
[2019-05-10 04:00] VITALS: BP 104/75
[2019-05-10] MEDS: MEROPENEM 500 MG in SODIUM CHLORIDE 0.9% 50 ML IV SCH ×2 (06:12→13:38)
[2019-05-10] MEDS: FUROSEMIDE 40MG/4ML VIAL IVP SCH ×2 (06:14→16:41)
[2019-05-10 06:34] LABS: BASOPHILS % 2.6 % (0.0-2.0); EOSINOPHILS % 3.8 % (0.0-5.0); HEMATOCRIT. 43.8 % (36.0-48.0); LYMPHOCYTES % 12.7 % (20.0-50.0); MEAN CORPUSCULAR HEMOGLOBIN 27.8 pg (28.0-32.0); MEAN CORPUSCULAR VOLUME 87.1 fL (81.0-99.0); MEAN PLATELET VOLUME 8.6 fl (7.4-10.4); MONOCYTES % 13.4 % (2.0-8.0); NEUTROPHILS % 67.5 % (40.0-76.0); PLATELET 191 x1000/uL (130-400); RED BLOOD CELL COUNT 5.03 mill/uL (4.2-5.4); RED CELL DISTRIBUTION WIDTH 20.1 % (11.6-14.6)
[2019-05-10 07:17] LABS: CHLORIDE 101 mEq/L (98-107)
[2019-05-10] MEDS: LINEZOLID 600 MG PREMIX 300 ML IV SCH ×2 (07:56→22:28)
[2019-05-10] MEDS: LACTULOSE 20G/30ML UDC PO SCH ×2 (07:57→16:48)
[2019-05-10] MEDS: METOPROLOL TARTRATE 25MG TABLET PO SCH ×2 (07:58→21:00)
[2019-05-10 08:37] VITALS: BP 100/70
[2019-05-10 12:04] VITALS: BP 106/75
[2019-05-10 16:41] VITALS: BP 106/68
[2019-05-10 20:00] VITALS: BP 105/63
[2019-05-11] VITALS: BP 102/70
[2019-05-11] MEDS: MEROPENEM 500 MG in SODIUM CHLORIDE 0.9% 50 ML IV SCH ×4 (00:26→21:05)
[2019-05-11 04:22] VITALS: BP 109/75
[2019-05-11] MEDS: FUROSEMIDE 40MG/4ML VIAL IVP SCH ×2 (06:03→17:31)
[2019-05-11 08:11] VITALS: BP 114/73
[2019-05-11] MEDS: LINEZOLID 600 MG PREMIX 300 ML IV SCH (08:34)
[2019-05-11] MEDS: LACTULOSE 20G/30ML UDC PO SCH ×2 (08:35→17:00)
[2019-05-11] MEDS: METOPROLOL TARTRATE 25MG TABLET PO SCH ×2 (08:35→21:04)
[2019-05-11 11:46] VITALS: BP 95/67
[2019-05-11] MEDS: ACETAMINOPHEN 325MG TABLET PO PRN (13:59)
[2019-05-11 16:13] VITALS: BP 125/81
[2019-05-11 20:00] VITALS: BP 112/67
[2019-05-12] VITALS (7 sets, daily range): BP systolic 92–136; BP diastolic 58–89
[2019-05-12] MEDS: ACETAMINOPHEN 325MG TABLET PO PRN ×2 (02:00→09:04)
[2019-05-12] MEDS: MEROPENEM 500 MG in SODIUM CHLORIDE 0.9% 50 ML IV SCH ×3 (05:02→21:20)
[2019-05-12] MEDS: FUROSEMIDE 40MG/4ML VIAL IVP SCH ×2 (06:07→17:28)
[2019-05-12 06:12] LABS: BASOPHILS % 1.5 % (0.0-2.0); HEMATOCRIT. 44.9 % (36.0-48.0); HEMOGLOBIN. 14.3 g/dL (12.0-16.0); LYMPHOCYTES % 16.9 % (20.0-50.0); MEAN CORPUSCULAR HEMOGLOBIN 27.7 pg (28.0-32.0); MEAN CORPUSCULAR VOLUME 87.3 fL (81.0-99.0); MEAN PLATELET VOLUME 8.6 fl (7.4-10.4); MONOCYTES % 12.7 % (2.0-8.0); NEUTROPHILS % 65.9 % (40.0-76.0); PLATELET 173 x1000/uL (130-400); RED BLOOD CELL COUNT 5.14 mill/uL (4.2-5.4)
[2019-05-12 06:47] LABS: CHLORIDE 93 mEq/L (98-107)
[2019-05-12] MEDS: LACTULOSE 20G/30ML UDC PO SCH ×2 (08:57→17:28)
[2019-05-12] MEDS: METOPROLOL TARTRATE 25MG TABLET PO SCH ×2 (08:58→21:21)
[2019-05-13] VITALS: BP 119/95
[2019-05-13 04:00] VITALS: BP 94/67
[2019-05-13] MEDS: MEROPENEM 500 MG in SODIUM CHLORIDE 0.9% 50 ML IV SCH ×3 (05:09→21:29)
[2019-05-13] MEDS: FUROSEMIDE 40MG/4ML VIAL IVP SCH ×2 (05:59→17:09)
[2019-05-13 08:00] VITALS: BP 103/76
[2019-05-13] MEDS: METOPROLOL TARTRATE 25MG TABLET PO SCH ×2 (09:00→21:29)
[2019-05-13] MEDS: LACTULOSE 20G/30ML UDC PO SCH ×2 (09:21→17:09)
[2019-05-13 12:00] VITALS: BP 119/83
[2019-05-13 15:38] LABS: CHLORIDE 93 mEq/L (98-107)
[2019-05-13] MEDS: HYDROCODONE/ACETAMINOPHEN 5/325MG TABLET PO PRN (15:46)
[2019-05-13 16:00] VITALS: BP 111/90
[2019-05-13 18:09] LABS: BG BASE EXCESS 16.7 mmol/L (-2.0-2.0); BG CARBOXYHEMOGLOBIN 1.3 % (0.5-1.5); BG FRACTION INSPIRED OXYGEN 28; BG HCO3 ACT 44.2 mmol/L (22.0-26.0); BG METHEMOGLOBIN 0.3 % (0.0-1.5); BG OXYHEMOGLOBIN 96.4 % (94.0-97.0); BG PCO2 63.3 mmHg (35.0-45.0); BG PH 7.462 (7.350-7.450); BG PO2 102.3 mmHg (75.0-100.0); BG SAMPLE SITE RIGHT RADIAL; BG TOTAL HEMOGLOBIN 15.1 g/dL (12.0-18.0); BG VENT MODE NASAL CANNULA
[2019-05-13 20:29] VITALS: BP 126/84
[2019-05-14 00:49] VITALS: BP 120/90
[2019-05-14] MEDS: HYDROCODONE/ACETAMINOPHEN 5/325MG TABLET PO PRN (01:02)
[2019-05-14 04:00] VITALS: BP 130/99
[2019-05-14] MEDS: FUROSEMIDE 40MG/4ML VIAL IVP SCH ×2 (06:18→17:23)
[2019-05-14] MEDS: MEROPENEM 500 MG in SODIUM CHLORIDE 0.9% 50 ML IV SCH ×2 (06:18→14:13)
[2019-05-14 07:11] LABS: BASOPHILS % 2.7 % (0.0-2.0); EOSINOPHILS % 1.4 % (0.0-5.0); HEMATOCRIT. 43.1 % (36.0-48.0); MEAN CORPUSCULAR HEMOGLOBIN 28.3 pg (28.0-32.0); MEAN CORPUSCULAR VOLUME 87.2 fL (81.0-99.0); MEAN PLATELET VOLUME 8.9 fl (7.4-10.4); MONOCYTES % 12.3 % (2.0-8.0); NEUTROPHILS % 67.6 % (40.0-76.0); PLATELET 161 x1000/uL (130-400); RED BLOOD CELL COUNT 4.94 mill/uL (4.2-5.4)
[2019-05-14 08:00] VITALS: BP 118/88
[2019-05-14 08:23] LABS: CHLORIDE 95 mEq/L (98-107)
[2019-05-14] MEDS: METOPROLOL TARTRATE 25MG TABLET PO SCH (08:56)
[2019-05-14] MEDS: LACTULOSE 20G/30ML UDC PO SCH ×4 (09:07→17:23)
[2019-05-14 12:00] VITALS: BP 119/88
[2019-05-14] MEDS ORDERED: IPRATROPIUM/ALBUTEROL 0.5-3(2.5)MG/3ML NEB HHN PRN (12:45)
[2019-05-14 16:48] VITALS: BP 124/76
[2019-05-14] MEDS ORDERED: IPRATROPIUM/ALBUTEROL 0.5-3(2.5)MG/3ML NEB HHN SCH (18:00)
[2019-06-14] MEDS ORDERED: HYDR-4133 PO (14:59)
[2019-06-14] MEDS ORDERED: METO25TA6 MT (14:59)
[2019-06-14] MEDS ORDERED: DOCU-138 MT (14:59)
[2019-06-14] MEDS ORDERED: HYDR-4133 MT (14:59)
[2019-06-14] MEDS ORDERED: DEXTL MT (14:59)
[2019-06-14] MEDS ORDERED: IPRA3AMP9 HHN (14:59)
[2019-06-14] MEDS ORDERED: CLON0.1T PO (14:59)
[2019-06-14] MEDS ORDERED: ONDA4TAB50 MT (14:59)
[2019-06-14] MEDS ORDERED: MYL30 PO (14:59)
[2019-06-14] MEDS ORDERED: TOPUD MT (14:59)
[2019-06-14] MEDS ORDERED: DIPH25CA83 PO (14:59)
[2019-06-16] MEDS ORDERED: ASPI-1497 MT (13:17)
== END 2019-05-14 20:30 | disposition home health service (06) | DRG 710 ==
LOC: ER 10:45 → 6WST 14:30 → ENRESERV 21:44
PROVIDERS: ADMIT Internal Medicine; ATTEND Internal Medicine
PROC: 0W9G3ZZ Drainage of Peritoneal Cavity, Percutaneous Approach (ICD-10-PCS; principal; 2019-05-04)
PROC: 0W9G3ZZ Drainage of Peritoneal Cavity, Percutaneous Approach (ICD-10-PCS; 2019-05-08)
PROC: 0LBW0ZZ Excision of Left Foot Tendon, Open Approach (ICD-10-PCS; 2019-05-09)
DX: A41.51 Sepsis due to Escherichia coli [E. coli] (principal); J96.02 Acute respiratory failure with hypercapnia; I50.23 Acute on chronic systolic (congestive) heart failure; E87.4 Mixed disorder of acid-base balance; N17.9 Acute kidney failure, unspecified; E87.1 Hypo-osmolality and hyponatremia; D68.9 Coagulation defect, unspecified; E87.5 Hyperkalemia; K70.31 Alcoholic cirrhosis of liver with ascites; I27.20 Pulmonary hypertension, unspecified; F15.10 Other stimulant abuse, uncomplicated; I42.0 Dilated cardiomyopathy; I13.0 Hypertensive heart and chronic kidney disease with heart failure and stage 1 through stage 4 chronic kidney disease, or unspecified chronic kidney disease; E78.5 Hyperlipidemia, unspecified; N18.9 Chronic kidney disease, unspecified; N39.0 Urinary tract infection, site not specified; N28.89 Other specified disorders of kidney and ureter; F17.210 Nicotine dependence, cigarettes, uncomplicated; I87.2 Venous insufficiency (chronic) (peripheral); I89.0 Lymphedema, not elsewhere classified; J44.9 Chronic obstructive pulmonary disease, unspecified; K72.90 Hepatic failure, unspecified without coma; L03.115 Cellulitis of right lower limb; L03.116 Cellulitis of left lower limb; L97.529 Non-pressure chronic ulcer of other part of left foot with unspecified severity; K80.20 Calculus of gallbladder without cholecystitis without obstruction; I08.1 Rheumatic disorders of both mitral and tricuspid valves; B96.20 Unspecified Escherichia coli [E. coli] as the cause of diseases classified elsewhere; L97.519 Non-pressure chronic ulcer of other part of right foot with unspecified severity; F12.10 Cannabis abuse, uncomplicated; I87.8 Other specified disorders of veins; Z59.0 Homelessness; Z79.899 Other long term (current) drug therapy
CPT/HCPCS: 36415; 36600; 49083; 71045; 73718; 74176; 80048; 80053; 80061; 81003; 82140; 82375; 82805; 82962; 83735; 83880; 84100; 84132; 84439; 84443; 84481; 84484; 84703; 85025; 86705; 86709; 86803; 87070; 87077; 87186; 87340; 93005; 93306; 93970; 94640; 96365; 99285; C1893; J0295; J0696; J1200; J1815; J1940; J2020; J2185; J2270; J2405; J2543; J3490; J7040; J7050

== ENCOUNTER 2019-05-17 19:37 | Emergency (ER) | payer MEDICAID ==
[~2019-05-17] VITALS: Ht 162.6 cm; Wt 77.0 kg
[2019-05-18 02:34] LABS: BASOPHILS % 0.4 % (0.0-2.0); HEMATOCRIT. 39.7 % (36.0-48.0); HEMOGLOBIN. 13.1 g/dL (12.0-16.0); LYMPHOCYTES % 11.8 % (20.0-50.0); MEAN CORPUSCULAR HEMOGLOBIN 28.4 pg (28.0-32.0); MEAN CORPUSCULAR VOLUME 86.3 fL (81.0-99.0); MEAN PLATELET VOLUME 9.9 fl (7.4-10.4); MONOCYTES % 14.5 % (2.0-8.0); NEUTROPHILS % 72.3 % (40.0-76.0); PLATELET 163 x1000/uL (130-400); RED CELL DISTRIBUTION WIDTH 18.2 % (11.6-14.6)
[2019-05-18 02:38] LABS: CHLORIDE 93 mEq/L (98-107)
[2019-05-18 02:50] LABS: CLARITY URINE CLEAR (CLEAR); COLOR URINE DARK YELLOW (YELLOW); KETONES URINE NEGATIVE (NEGATIVE); LEUKOCYTE ESTERASE URINE NEGATIVE (NEGATIVE); NITRITE URINE NEGATIVE (NEGATIVE); OCCULT BLOOD URINE NEGATIVE (NEGATIVE); PROTEIN URINE 2+ (NEGATIVE); SPECIFIC GRAVITY URINE 1.019 (1.005-1.030)
[2019-05-18] MEDS ORDERED: IBUPROFEN 600MG TABLET PO ONE (05:45)
[2019-05-18 11:00] VITALS: BP 124/92
== END 2019-05-18 14:50 | disposition home or self-care (01) ==
LOC: ER 19:37
DX: R10.84 Generalized abdominal pain (principal); Z59.0 Homelessness; F12.10 Cannabis abuse, uncomplicated; F15.10 Other stimulant abuse, uncomplicated; I11.0 Hypertensive heart disease with heart failure; I50.9 Heart failure, unspecified; J44.9 Chronic obstructive pulmonary disease, unspecified; Z98.890 Other specified postprocedural states; Z79.899 Other long term (current) drug therapy
CPT/HCPCS: 36415; 74021; 80053; 81003; 81025; 85025; 99285

== ENCOUNTER 2019-05-18 15:32 | Inpatient (IN) | payer MEDICAID ==
[~2019-05-18] VITALS: Ht 165.1 cm; Wt 86.2 kg
[2019-05-18 19:31] LABS: CHLORIDE 90 mEq/L (98-107); INR 1.7
[2019-05-18 19:39] LABS: BASOPHILS % 0.9 % (0.0-2.0); EOSINOPHILS % 0.9 % (0.0-5.0); HEMATOCRIT. 40.6 % (36.0-48.0); HEMOGLOBIN. 13.4 g/dL (12.0-16.0); LYMPHOCYTES % 10.2 % (20.0-50.0); MEAN CORPUSCULAR HEMOGLOBIN 28.7 pg (28.0-32.0); MEAN PLATELET VOLUME 10.2 fl (7.4-10.4); MONOCYTES % 9.6 % (2.0-8.0); NEUTROPHILS % 78.4 % (40.0-76.0); PLATELET 202 x1000/uL (130-400); RED BLOOD CELL COUNT 4.66 mill/uL (4.2-5.4); RED CELL DISTRIBUTION WIDTH 17.9 % (11.6-14.6)
[2019-05-18 23:55] LABS: *BARBITURATES SCREEN URINE NEGATIVE (NEGATIVE); *BENZODIAZEPINES SCREEN URINE NEGATIVE (NEGATIVE); *COCAINE SCREEN URINE NEGATIVE (NEGATIVE)
[2019-05-18 23:56] LABS: METHADONE URINE SCREEN NEGATIVE (NEGATIVE); OPIATES URINE SCREEN NEGATIVE (NEGATIVE); PHENCYCLIDINE URINE SCREEN NEGATIVE (NEGATIVE)
[2019-05-19 00:07] LABS: CLARITY URINE CLOUDY (CLEAR); COLOR URINE DK YELLOW (YELLOW); KETONES URINE NEGATIVE (NEGATIVE); LEUKOCYTE ESTERASE URINE 2+ (NEGATIVE); NITRITE URINE NEGATIVE (NEGATIVE); OCCULT BLOOD URINE NEGATIVE (NEGATIVE); PH URINE 5.5 (4.5-8.0); PROTEIN URINE 2+ (NEGATIVE)
[2019-05-19 00:12] LABS: *AMPHETAMINES SCREEN URINE PRESUMTIVE POSITIVE (NEGATIVE); CANNABINOID URINE SCREEN PRESUMTIVE POSITIVE (NEGATIVE)
[2019-05-19] MEDS ORDERED: CEFTRIAXONE 2 G PREMIX 50 ML IV NR (07:15)
[2019-05-19] MEDS ORDERED: CLONIDINE 0.1MG TABLET PO PRN (07:30)
[2019-05-19] MEDS ORDERED: LORAZEPAM 2MG/ML CPJ IV PRN (07:30)
[2019-05-19] MEDS ORDERED: ONDANSETRON HCL 4MG/2ML INJ IV PRN (07:30)
[2019-05-19] MEDS ORDERED: MAGNESIUM/ALUMINUM HYDROXIDE/SIMETHICONE 30ML UDC PO PRN (07:30)
[2019-05-19] MEDS ORDERED: IPRATROPIUM/ALBUTEROL 0.5-3(2.5)MG/3ML NEB HHN PRN (07:30)
[2019-05-19] MEDS ORDERED: ACETAMINOPHEN 325MG TABLET PO PRN (07:30)
[2019-05-19] MEDS ORDERED: DIPHENHYDRAMINE 50MG/ML VIAL IV PRN (07:30)
[2019-05-19] MEDS ORDERED: GUAIFENESIN 200MG/10ML SUGAR FREE UDC PO PRN (07:30)
[2019-05-19] MEDS ORDERED: HYDROCODONE/ACETAMINOPHEN 10/325MG TABLET PO PRN (07:30)
[2019-05-19] MEDS ORDERED: DOCUSATE SODIUM 100MG CAPSULE PO PRN (07:30)
[2019-05-19] MEDS ORDERED: FUROSEMIDE 40MG/4ML VIAL IVP NR (09:45)
[2019-05-19] MEDS: MORPHINE SULFATE 2 MG/ML CPJ (NOT FOR IM USE) IV PRN ×3 (10:17→22:42)
[2019-05-19] MEDS ORDERED: HYDRALAZINE 20MG/ML VIAL IV PRN (11:30)
[2019-05-19 12:00] VITALS: BP 118/89
[2019-05-19] MEDS: ENOXAPARIN 40MG/0.4ML SYR SUBCUT SCH (13:27)
[2019-05-19] MEDS: SODIUM CHLORIDE 0.9% INJ 3ML FLUSH IVF SCH ×2 (14:00→22:42)
[2019-05-19 16:00] VITALS: BP_SYST 118; BP_DIAS 82; BP_DIAS 89
[2019-05-19 17:07] LABS: CREATINE KINASE MB FRACTION 2.5 ng/mL (0.5-3.6); T4 FREE 1.51 ng/dL (0.76-1.46)
[2019-05-19] MEDS ORDERED: METOPROLOL TARTRATE 5MG/5ML VIAL IV PRN (19:30)
[2019-05-19 20:00] VITALS: BP 110/84
[2019-05-19 23:53] LABS: CREATINE KINASE MB FRACTION 2.6 ng/mL (0.5-3.6)
[2019-05-20] VITALS: BP 118/98
[2019-05-20 04:00] VITALS: BP 116/91
[2019-05-20] MEDS: SODIUM CHLORIDE 0.9% INJ 3ML FLUSH IVF SCH ×3 (05:28→22:49)
[2019-05-20] MEDS: MORPHINE SULFATE 2 MG/ML CPJ (NOT FOR IM USE) IV PRN ×2 (05:56→20:26)
[2019-05-20 08:00] VITALS: BP 120/89
[2019-05-20 12:00] VITALS: BP 116/80
[2019-05-20] MEDS ORDERED: SODIUM BICARBONATE 4% (2.4MEQ) 5ML VIAL IV ONE (12:47)
[2019-05-20] MEDS ORDERED: LIDOCAINE HCL 1% 20ML VIAL (Pyxis) INJ ONE (12:47)
[2019-05-20 16:00] VITALS: BP 111/79
[2019-05-20 16:05] LABS: BASOPHILS % 1.4 % (0.0-2.0); EOSINOPHILS % 0.3 % (0.0-5.0); HEMOGLOBIN. 13.3 g/dL (12.0-16.0); LYMPHOCYTES % 14.8 % (20.0-50.0); MEAN CORPUSCULAR HEMOGLOBIN 29.2 pg (28.0-32.0); MEAN CORPUSCULAR VOLUME 87.4 fL (81.0-99.0); MEAN PLATELET VOLUME 10.8 fl (7.4-10.4); NEUTROPHILS % 72.5 % (40.0-76.0); PLATELET 197 x1000/uL (130-400); RED BLOOD CELL COUNT 4.57 mill/uL (4.2-5.4)
[2019-05-20 16:12] LABS: INR 2.2; PARTIAL THROMBOPLASTIN TIME 35.6 sec (23.4-31.0); PROTHROMBIN TIME 23.2 sec (9.6-11.0)
[2019-05-20 16:18] LABS: CHLORIDE 85 mEq/L (98-107)
[2019-05-21 00:27] VITALS: BP 108/86
[2019-05-21] MEDS: MORPHINE SULFATE 2 MG/ML CPJ (NOT FOR IM USE) IV PRN ×4 (02:12→20:44)
[2019-05-21 04:00] VITALS: BP 128/82
[2019-05-21] MEDS: SODIUM CHLORIDE 0.9% INJ 3ML FLUSH IVF SCH ×3 (05:14→22:05)
[2019-05-21 06:27] LABS: BASOPHILS % 1.4 % (0.0-2.0); EOSINOPHILS % 0.9 % (0.0-5.0); HEMATOCRIT. 39.2 % (36.0-48.0); HEMOGLOBIN. 13.1 g/dL (12.0-16.0); LYMPHOCYTES % 12.6 % (20.0-50.0); MEAN CORPUSCULAR HEMOGLOBIN 29.3 pg (28.0-32.0); MEAN CORPUSCULAR VOLUME 87.5 fL (81.0-99.0); MONOCYTES % 13.3 % (2.0-8.0); NEUTROPHILS % 71.8 % (40.0-76.0); PLATELET 203 x1000/uL (130-400); RED BLOOD CELL COUNT 4.48 mill/uL (4.2-5.4); RED CELL DISTRIBUTION WIDTH 18.5 % (11.6-14.6)
[2019-05-21 08:00] VITALS: BP 110/80
[2019-05-21] MEDS: ENOXAPARIN 40MG/0.4ML SYR SUBCUT SCH (09:00)
[2019-05-21 12:00] VITALS: BP 100/72
[2019-05-21 16:00] VITALS: BP 110/61
[2019-05-21] MEDS: LACTULOSE 20G/30ML UDC PO SCH (17:59)
[2019-05-21 20:00] VITALS: BP 117/72
[2019-05-22] VITALS: BP 126/76
[2019-05-22] MEDS: MORPHINE SULFATE 2 MG/ML CPJ (NOT FOR IM USE) IV PRN ×3 (02:50→15:12)
[2019-05-22 04:00] VITALS: BP 104/79
[2019-05-22] MEDS: SODIUM CHLORIDE 0.9% INJ 3ML FLUSH IVF SCH ×3 (05:52→21:40)
[2019-05-22 08:00] VITALS: BP 147/90
[2019-05-22 08:55] LABS: BASOPHILS % 1.1 % (0.0-2.0); EOSINOPHILS % 2.8 % (0.0-5.0); LYMPHOCYTES % 16.4 % (20.0-50.0); MEAN CORPUSCULAR HEMOGLOBIN 28.9 pg (28.0-32.0); MEAN CORPUSCULAR VOLUME 87.4 fL (81.0-99.0); MEAN PLATELET VOLUME 10.7 fl (7.4-10.4); MONOCYTES % 10.1 % (2.0-8.0); NEUTROPHILS % 69.6 % (40.0-76.0); PLATELET 205 x1000/uL (130-400); RED BLOOD CELL COUNT 3.79 mill/uL (4.2-5.4); RED CELL DISTRIBUTION WIDTH 18.1 % (11.6-14.6)
[2019-05-22] MEDS: ENOXAPARIN 30MG/0.3ML SYR SUBCUT SCH (09:00)
[2019-05-22 09:05] LABS: HEMATOCRIT. 33.1 % (36.0-48.0); HEMOGLOBIN. 10.9 g/dL (12.0-16.0)
[2019-05-22] MEDS: LACTULOSE 20G/30ML UDC PO SCH ×2 (09:55→18:12)
[2019-05-22 12:00] VITALS: BP 119/77
[2019-05-22 16:21] VITALS: BP 112/84
[2019-05-22 20:00] VITALS: BP 119/92
[2019-05-23] VITALS: BP 108/76
[2019-05-23] MEDS: MORPHINE SULFATE 2 MG/ML CPJ (NOT FOR IM USE) IV PRN ×3 (00:13→13:55)
[2019-05-23 04:00] VITALS: BP 104/78
[2019-05-23] MEDS: SODIUM CHLORIDE 0.9% INJ 3ML FLUSH IVF SCH ×2 (05:28→13:56)
[2019-05-23 08:00] VITALS: BP 117/86
[2019-05-23] MEDS: LACTULOSE 20G/30ML UDC PO SCH ×3 (08:31→18:33)
[2019-05-23] MEDS: ENOXAPARIN 30MG/0.3ML SYR SUBCUT SCH (08:31)
[2019-05-23 12:00] VITALS: BP 126/77
[2019-05-23 15:42] LABS: BASOPHILS % 0.9 % (0.0-2.0); HEMATOCRIT. 31.8 % (36.0-48.0); HEMOGLOBIN. 10.3 g/dL (12.0-16.0); LYMPHOCYTES % 12.8 % (20.0-50.0); MEAN CORPUSCULAR HEMOGLOBIN 28.6 pg (28.0-32.0); MEAN CORPUSCULAR VOLUME 88.1 fL (81.0-99.0); MEAN PLATELET VOLUME 9.8 fl (7.4-10.4); MONOCYTES % 12.1 % (2.0-8.0); NEUTROPHILS % 71.2 % (40.0-76.0); PLATELET 189 x1000/uL (130-400); RED CELL DISTRIBUTION WIDTH 18.4 % (11.6-14.6)
[2019-05-23 18:16] VITALS: BP 126/77
[2019-05-24 19:08] LABS: HEPATITIS B SURFACE ANTIGEN NEGATIVE
[2019-05-24 19:36] LABS: HEPATITIS A AB IGM NEGATIVE (NEGATIVE)
[2019-06-14] MEDS ORDERED: ONDA4TAB50 MT (14:59)
[2019-06-14] MEDS ORDERED: TOPUD MT (14:59)
[2019-06-14] MEDS ORDERED: HYDR-4133 MT (14:59)
[2019-06-14] MEDS ORDERED: CLON0.1T PO (14:59)
[2019-06-14] MEDS ORDERED: DIPH25CA83 PO (14:59)
[2019-06-14] MEDS ORDERED: DEXTL MT (14:59)
[2019-06-14] MEDS ORDERED: MYL30 PO (14:59)
[2019-06-14] MEDS ORDERED: DOCU-138 MT (14:59)
[2019-06-14] MEDS ORDERED: METO25TA6 MT (14:59)
[2019-06-14] MEDS ORDERED: HYDR-4133 PO (14:59)
[2019-06-14] MEDS ORDERED: IPRA3AMP9 HHN (14:59)
[2019-06-16] MEDS ORDERED: ASPI-1497 MT (13:17)
== END 2019-05-23 19:47 ==
LOC: ER 15:32 → EDBEDREQ 05-19 07:09 → EDBEDREQTM 05-19 07:09 → ENRESERV 05-19 09:52 → 7WST 05-19 10:30
PROVIDERS: ADMIT Internal Medicine; ATTEND Internal Medicine
PROC: 0W9G3ZZ Drainage of Peritoneal Cavity, Percutaneous Approach (ICD-10-PCS; principal; 2019-05-20)
DX: K74.60 Unspecified cirrhosis of liver (principal); N17.0 Acute kidney failure with tubular necrosis; I50.43 Acute on chronic combined systolic (congestive) and diastolic (congestive) heart failure; E87.3 Alkalosis; E46 Unspecified protein-calorie malnutrition; D68.9 Coagulation defect, unspecified; E11.22 Type 2 diabetes mellitus with diabetic chronic kidney disease; E11.621 Type 2 diabetes mellitus with foot ulcer; E87.1 Hypo-osmolality and hyponatremia; I13.0 Hypertensive heart and chronic kidney disease with heart failure and stage 1 through stage 4 chronic kidney disease, or unspecified chronic kidney disease; F15.10 Other stimulant abuse, uncomplicated; F12.10 Cannabis abuse, uncomplicated; R18.8 Other ascites; K80.20 Calculus of gallbladder without cholecystitis without obstruction; L97.529 Non-pressure chronic ulcer of other part of left foot with unspecified severity; E78.5 Hyperlipidemia, unspecified; J44.9 Chronic obstructive pulmonary disease, unspecified; N18.9 Chronic kidney disease, unspecified; Z87.891 Personal history of nicotine dependence; Z99.3 Dependence on wheelchair; Z68.31 Body mass index [BMI] 31.0-31.9, adult; Z59.0 Homelessness
CPT/HCPCS: 36415; 49083; 71045; 74176; 76705; 80048; 80053; 80061; 80305; 81003; 82140; 82533; 82550; 82553; 83036; 83880; 83930; 83935; 84439; 84443; 84450; 84460; 84484; 85025; 85379; 86705; 86709; 86803; 87070; 87077; 87186; 87340; 93005; 93970; 96374; 97162; 99285; J0696; J1650; J1940; J2060; J2270; J3490

== ENCOUNTER 2019-06-08 02:35 | Emergency (ER) | payer MEDICAID ==
[~2019-06-08] VITALS: Ht 165.1 cm; Wt 84.0 kg
[2019-06-08 04:12] LABS: HEMATOCRIT 32.6 % (36.0-48.0); HEMOGLOBIN 10.7 g/dL (12.0-16.0); MEAN CORPUSCULAR HEMOGLOBIN 28.7 pg (28.0-32.0); MEAN CORPUSCULAR VOLUME 87.9 fL (81.0-99.0); PLATELET 167 x1000/uL (130-400); RED BLOOD CELL COUNT 3.71 mill/uL (4.2-5.4); RED CELL DISTRIBUTION WIDTH 19.3 % (11.6-14.6)
[2019-06-08 04:18] LABS: CHLORIDE 104 mEq/L (98-107)
[2019-06-08 04:20] LABS: INR 1.2; PARTIAL THROMBOPLASTIN TIME 35.4 sec (23.4-31.0); PROTHROMBIN TIME 13.2 sec (9.6-11.0)
[2019-06-08 06:23] VITALS: BP 118/83
== END 2019-06-08 06:33 | disposition home or self-care (01) ==
LOC: ER 02:35
DX: R18.8 Other ascites (principal); I11.0 Hypertensive heart disease with heart failure; I50.9 Heart failure, unspecified; K74.60 Unspecified cirrhosis of liver; F12.10 Cannabis abuse, uncomplicated; F15.10 Other stimulant abuse, uncomplicated; R06.02 Shortness of breath
CPT/HCPCS: 36415; 49083; 71045; 80053; 85027; 99285

== ENCOUNTER 2019-10-26 02:44 | Inpatient (IN) | payer MEDICAID ==
[~2019-10-26] VITALS: Ht 162.6 cm; Wt 81.6 kg
[~2019-10-26 02:44] MED LIST changes: +ASPI-1497 MT; +CLON0.1T PO; +DEXTL MT; +DIPH25CA83 PO; +DOCU-138 MT; +IPRA3AMP9 HHN; +MYL30 PO; +ONDA4TAB50 MT; +TOPUD MT
[2019-10-26] MEDS ORDERED: FUROSEMIDE 40MG/4ML VIAL IVP ONE (03:30)
[2019-10-26 03:39] LABS: BASOPHILS % 1.3 % (0.0-2.0); EOSINOPHILS % 0.2 % (0.0-5.0); HEMATOCRIT. 42.3 % (36.0-48.0); HEMOGLOBIN. 13.9 g/dL (12.0-16.0); LYMPHOCYTES % 16.8 % (20.0-50.0); MEAN CORPUSCULAR HEMOGLOBIN 27.4 pg (28.0-32.0); MEAN CORPUSCULAR VOLUME 83.7 fL (81.0-99.0); MEAN PLATELET VOLUME 9.6 fl (7.4-10.4); MONOCYTES % 7.7 % (2.0-8.0); PLATELET 220 x1000/uL (130-400); RED BLOOD CELL COUNT 5.05 mill/uL (4.2-5.4); RED CELL DISTRIBUTION WIDTH 16.5 % (11.6-14.6)
[2019-10-26 03:40] LABS: CHLORIDE 102 mEq/L (98-107)
[2019-10-26 03:45] LABS: INR 1.6; PROTHROMBIN TIME 16.1 sec (9.6-11.0)
[2019-10-26 10:13] LABS: CLARITY URINE CLEAR (CLEAR); COLOR URINE YELLOW (YELLOW); KETONES URINE NEGATIVE (NEGATIVE); LEUKOCYTE ESTERASE URINE TRACE (NEGATIVE); NITRITE URINE NEGATIVE (NEGATIVE); OCCULT BLOOD URINE NEGATIVE (NEGATIVE); PROTEIN URINE 2+ (NEGATIVE); SPECIFIC GRAVITY URINE 1.015 (1.005-1.030)
[2019-10-26 10:50] VITALS: BP 134/101
[2019-10-26 12:00] VITALS: BP 134/101
[2019-10-26] MEDS ORDERED: IPRATROPIUM/ALBUTEROL 0.5-3(2.5)MG/3ML NEB HHN PRN (12:15)
[2019-10-26] MEDS ORDERED: ACETAMINOPHEN 325MG TABLET PO PRN (12:15)
[2019-10-26] MEDS ORDERED: ONDANSETRON HCL 4MG/2ML INJ IV PRN (12:15)
[2019-10-26] MEDS: ENOXAPARIN 40MG/0.4ML SYR SUBCUT SCH (12:55)
[2019-10-26] MEDS: LOSARTAN POTASSIUM 25 MG TABLET PO SCH (12:55)
[2019-10-26 16:00] VITALS: BP 128/98
[2019-10-26] MEDS: FUROSEMIDE 40MG/4ML VIAL IVP SCH (17:06)
[2019-10-26 17:59] LABS: *AMPHETAMINES SCREEN URINE PRESUMTIVE POSITIVE (NEGATIVE); *BARBITURATES SCREEN URINE NEGATIVE (NEGATIVE); *BENZODIAZEPINES SCREEN URINE NEGATIVE (NEGATIVE); *COCAINE SCREEN URINE NEGATIVE (NEGATIVE)
[2019-10-26 18:00] LABS: CANNABINOID URINE SCREEN PRESUMTIVE POSITIVE (NEGATIVE); METHADONE URINE SCREEN NEGATIVE (NEGATIVE); OPIATES URINE SCREEN NEGATIVE (NEGATIVE); PHENCYCLIDINE URINE SCREEN NEGATIVE (NEGATIVE)
[2019-10-26 20:00] VITALS: BP 125/92
[2019-10-26] MEDS: CARVEDILOL 6.25 MG TABLET PO SCH (20:07)
[2019-10-27] VITALS: BP 115/80
[2019-10-27 04:00] VITALS: BP 105/79
[2019-10-27] MEDS: FUROSEMIDE 40MG/4ML VIAL IVP SCH (06:19)
[2019-10-27 08:00] VITALS: BP 103/73
[2019-10-27 08:07] LABS: BASOPHILS % 1.2 % (0.0-2.0); EOSINOPHILS % 2.1 % (0.0-5.0); HEMATOCRIT. 38.1 % (36.0-48.0); HEMOGLOBIN. 12.4 g/dL (12.0-16.0); LYMPHOCYTES % 26.8 % (20.0-50.0); MEAN CORPUSCULAR HEMOGLOBIN 27.2 pg (28.0-32.0); MEAN CORPUSCULAR VOLUME 83.7 fL (81.0-99.0); MONOCYTES % 12.8 % (2.0-8.0); NEUTROPHILS % 57.1 % (40.0-76.0); PLATELET 178 x1000/uL (130-400); RED BLOOD CELL COUNT 4.55 mill/uL (4.2-5.4); RED CELL DISTRIBUTION WIDTH 16.7 % (11.6-14.6)
[2019-10-27] MEDS: LOSARTAN POTASSIUM 25 MG TABLET PO SCH (09:00)
[2019-10-27] MEDS: CARVEDILOL 6.25 MG TABLET PO SCH (09:00)
[2019-10-27 11:55] VITALS: BP 113/82
[2019-10-27] MEDS: ENOXAPARIN 40MG/0.4ML SYR SUBCUT SCH (12:14)
[2019-10-27 15:16] VITALS: BP 113/82
[2019-10-27 16:00] VITALS: BP 121/83
== END 2019-10-27 17:05 | disposition home or self-care (01) | DRG 194 ==
LOC: ER 02:44 → 8WST 05:07 → ENRESERV 07:33 → ER 10:22
PROVIDERS: ADMIT Internal Medicine; ATTEND Internal Medicine
DX: I11.0 Hypertensive heart disease with heart failure (principal); I50.23 Acute on chronic systolic (congestive) heart failure; E44.1 Mild protein-calorie malnutrition; I27.20 Pulmonary hypertension, unspecified; R79.89 Other specified abnormal findings of blood chemistry; I34.0 Nonrheumatic mitral (valve) insufficiency; I42.9 Cardiomyopathy, unspecified; I73.9 Peripheral vascular disease, unspecified; J44.9 Chronic obstructive pulmonary disease, unspecified; Z98.891 History of uterine scar from previous surgery; Z68.30 Body mass index [BMI] 30.0-30.9, adult
CPT/HCPCS: 36415; 71045; 80048; 80053; 80305; 81003; 83735; 83880; 84484; 85025; 93005; 93306; 99285; J1650; J1940

== ENCOUNTER 2019-12-14 19:40 | Inpatient (IN) | payer MEDICAID ==
[~2019-12-14] VITALS: Ht 162.6 cm; Wt 86.2 kg
[~2019-12-14 19:40] MED LIST changes: -CLON0.1T PO
[2019-12-14] MEDS ORDERED: FUROSEMIDE 40MG/4ML VIAL IVP ONE (21:15)
[2019-12-14 21:33] LABS: BASOPHILS % 1.1 % (0.0-2.0); EOSINOPHILS % 0.4 % (0.0-5.0); HEMATOCRIT. 39.9 % (36.0-48.0); HEMOGLOBIN. 12.9 g/dL (12.0-16.0); LYMPHOCYTES % 17.7 % (20.0-50.0); MEAN CORPUSCULAR HEMOGLOBIN 25.9 pg (28.0-32.0); MEAN CORPUSCULAR VOLUME 80.5 fL (81.0-99.0); MEAN PLATELET VOLUME 10.1 fl (7.4-10.4); NEUTROPHILS % 68.8 % (40.0-76.0); PLATELET 246 x1000/uL (130-400); RED BLOOD CELL COUNT 4.96 mill/uL (4.2-5.4); RED CELL DISTRIBUTION WIDTH 18.8 % (11.6-14.6)
[2019-12-14 21:37] LABS: CHLORIDE 96 mEq/L (98-107)
[2019-12-15] VITALS (9 sets, daily range): BP systolic 93–143; BP diastolic 64–101
[2019-12-15] MEDS ORDERED: FURO40TA5 PO (07:00)
[2019-12-15] MEDS ORDERED: ONDANSETRON HCL 4MG/2ML INJ IV PRN (08:00)
[2019-12-15] MEDS: OMEPRAZOLE 20MG CAPSULE EXTENDED RELEASE PO SCH (08:38)
[2019-12-15] MEDS: LOSARTAN POTASSIUM 50 MG TABLET PO SCH (08:38)
[2019-12-15] MEDS: CARVEDILOL 6.25 MG TABLET PO SCH ×2 (08:39→22:18)
[2019-12-15 13:06] LABS: BASOPHILS % 1.5 % (0.0-2.0); EOSINOPHILS % 0.7 % (0.0-5.0); HEMATOCRIT. 38.8 % (36.0-48.0); HEMOGLOBIN. 12.3 g/dL (12.0-16.0); LYMPHOCYTES % 14.7 % (20.0-50.0); MEAN CORPUSCULAR HEMOGLOBIN 25.6 pg (28.0-32.0); MEAN CORPUSCULAR VOLUME 80.8 fL (81.0-99.0); MEAN PLATELET VOLUME 10.1 fl (7.4-10.4); NEUTROPHILS % 72.1 % (40.0-76.0); PLATELET 239 x1000/uL (130-400); RED CELL DISTRIBUTION WIDTH 18.4 % (11.6-14.6)
[2019-12-15 13:13] LABS: INR 1.9; PROTHROMBIN TIME 19.7 sec (9.6-11.0)
[2019-12-15 13:19] LABS: T4 FREE 1.16 ng/dL (0.76-1.46)
[2019-12-15 13:36] LABS: HEPATITIS B SURFACE ANTIGEN NEGATIVE
[2019-12-15 16:45] LABS: CREATINE KINASE MB FRACTION 6.8 ng/mL (0.5-3.6)
[2019-12-15] MEDS: FUROSEMIDE 40MG/4ML VIAL IVP SCH (18:16)
[2019-12-15] MEDS: IPRATROPIUM/ALBUTEROL 0.5-3(2.5)MG/3ML NEB HHN SCH (20:29)
[2019-12-16] VITALS (7 sets, daily range): BP systolic 98–126; BP diastolic 58–77
[2019-12-16] MEDS: IPRATROPIUM/ALBUTEROL 0.5-3(2.5)MG/3ML NEB HHN SCH ×5 (00:15→20:00)
[2019-12-16 00:24] LABS: CREATINE KINASE MB FRACTION 7.5 ng/mL (0.5-3.6)
[2019-12-16 06:11] LABS: BASOPHILS % 1.1 % (0.0-2.0); EOSINOPHILS % 2.9 % (0.0-5.0); HEMOGLOBIN. 12.1 g/dL (12.0-16.0); LYMPHOCYTES % 15.5 % (20.0-50.0); MEAN CORPUSCULAR HEMOGLOBIN 25.7 pg (28.0-32.0); MEAN CORPUSCULAR VOLUME 80.7 fL (81.0-99.0); MONOCYTES % 10.5 % (2.0-8.0); PLATELET 194 x1000/uL (130-400); RED BLOOD CELL COUNT 4.71 mill/uL (4.2-5.4); RED CELL DISTRIBUTION WIDTH 18.7 % (11.6-14.6)
[2019-12-16] MEDS: OMEPRAZOLE 20MG CAPSULE EXTENDED RELEASE PO SCH (06:16)
[2019-12-16 06:23] LABS: CREATINE KINASE MB FRACTION 6.7 ng/mL (0.5-3.6)
[2019-12-16] MEDS: FUROSEMIDE 40MG/4ML VIAL IVP SCH ×2 (06:34→18:16)
[2019-12-16 07:30] LABS: FOLIC ACID (FOLATE) SERUM 16.4 ng/mL (>5.38)
[2019-12-16] MEDS ORDERED: SODIUM BICARBONATE 4% (2.4MEQ) 5ML VIAL IV ONE (08:39)
[2019-12-16] MEDS ORDERED: LIDOCAINE HCL 1% 20ML VIAL (Pyxis) INJ ONE (08:39)
[2019-12-16] MEDS: LOSARTAN POTASSIUM 50 MG TABLET PO SCH (09:00)
[2019-12-16] MEDS: CARVEDILOL 6.25 MG TABLET PO SCH ×2 (09:00→21:35)
[2019-12-16] MEDS: FERROUS SULFATE 325MG TABLET PO SCH ×2 (13:04→18:17)
[2019-12-16] MEDS: LACTULOSE 20G/30ML UDC PO SCH (13:07)
[2019-12-16] MEDS ORDERED: FURO40TA5 PO (16:12)
[2019-12-16] MEDS ORDERED: LOSA25TA3 PO (16:12)
[2019-12-16] MEDS ORDERED: COR6 PO (16:12)
[2019-12-16 19:18] LABS: CLARITY URINE CLEAR (CLEAR); COLOR URINE YELLOW (YELLOW); KETONES URINE NEGATIVE (NEGATIVE); LEUKOCYTE ESTERASE URINE NEGATIVE (NEGATIVE); NITRITE URINE NEGATIVE (NEGATIVE); OCCULT BLOOD URINE NEGATIVE (NEGATIVE); PH URINE 5.5 (4.5-8.0); PROTEIN URINE TRACE (NEGATIVE); SPECIFIC GRAVITY URINE 1.016 (1.005-1.030)
[2019-12-16 19:50] LABS: *AMPHETAMINES SCREEN URINE PRESUMTIVE POSITIVE (NEGATIVE); *BARBITURATES SCREEN URINE NEGATIVE (NEGATIVE); *BENZODIAZEPINES SCREEN URINE NEGATIVE (NEGATIVE); *COCAINE SCREEN URINE NEGATIVE (NEGATIVE); METHADONE URINE SCREEN NEGATIVE (NEGATIVE); OPIATES URINE SCREEN NEGATIVE (NEGATIVE)
[2019-12-16 19:51] LABS: CANNABINOID URINE SCREEN PRESUMTIVE POSITIVE (NEGATIVE); PHENCYCLIDINE URINE SCREEN NEGATIVE (NEGATIVE)
[2019-12-16] MEDS ORDERED: LACTULOSE 20G/30ML UDC PO PRN (21:00)
[2019-12-16] MEDS: ASCORBIC ACID 500 MG TABLET PO SCH (21:34)
[2019-12-17] VITALS: BP 101/67
[2019-12-17 04:00] VITALS: BP 123/84
[2019-12-17] MEDS: IPRATROPIUM/ALBUTEROL 0.5-3(2.5)MG/3ML NEB HHN SCH ×4 (04:00→12:50)
[2019-12-17] MEDS: FUROSEMIDE 40MG/4ML VIAL IVP SCH (06:25)
[2019-12-17] MEDS: OMEPRAZOLE 20MG CAPSULE EXTENDED RELEASE PO SCH (06:36)
[2019-12-17 08:00] VITALS: BP 110/82
[2019-12-17 08:06] LABS: CHLORIDE 98 mEq/L (98-107)
[2019-12-17] MEDS: FERROUS SULFATE 325MG TABLET PO SCH ×2 (08:49→12:40)
[2019-12-17] MEDS: ASCORBIC ACID 500 MG TABLET PO SCH (08:49)
[2019-12-17] MEDS: LOSARTAN POTASSIUM 50 MG TABLET PO SCH (08:57)
[2019-12-17] MEDS: CARVEDILOL 6.25 MG TABLET PO SCH (08:58)
[2019-12-17] MEDS ORDERED: ALBU18HF2 IH (10:12)
[2019-12-17] MEDS ORDERED: FLUT1DIS3 INH (10:12)
[2019-12-17 11:01] LABS: BG BASE EXCESS 8.5 mmol/L (-2.0-2.0); BG CARBOXYHEMOGLOBIN 1.8 % (0.5-1.5); BG HCO3 ACT 35.2 mmol/L (22.0-26.0); BG METHEMOGLOBIN 0.3 % (0.0-1.5); BG OXYGEN SATURATION 91.8 % (92.0-98.5); BG OXYHEMOGLOBIN 89.9 % (94.0-97.0); BG PCO2 57.4 mmHg (35.0-45.0); BG PH 7.405 (7.350-7.450); BG TOTAL HEMOGLOBIN 13.9 g/dL (12.0-18.0)
[2019-12-17 12:00] VITALS: BP 133/79
[2019-12-17] MEDS: LACTULOSE 20G/30ML UDC PO SCH (12:00)
== END 2019-12-17 14:10 | disposition home or self-care (01) | DRG 194 ==
LOC: ER 19:40 → 8WST 12-15 00:18 → EDBEDREQDT 12-15 00:25 → EDBEDREQTM 12-15 00:25 → EDBEDREQ 12-15 00:25 → ENRESERV 12-15 05:04
PROVIDERS: ADMIT Internal Medicine; ATTEND Internal Medicine
PROC: 0W9G30Z Drainage of Peritoneal Cavity with Drainage Device, Percutaneous Approach (ICD-10-PCS; principal; 2019-12-16)
DX: I13.0 Hypertensive heart and chronic kidney disease with heart failure and stage 1 through stage 4 chronic kidney disease, or unspecified chronic kidney disease (principal); I50.23 Acute on chronic systolic (congestive) heart failure; J96.00 Acute respiratory failure, unspecified whether with hypoxia or hypercapnia; I27.20 Pulmonary hypertension, unspecified; D50.9 Iron deficiency anemia, unspecified; N17.0 Acute kidney failure with tubular necrosis; R18.8 Other ascites; D68.4 Acquired coagulation factor deficiency; E87.1 Hypo-osmolality and hyponatremia; K74.60 Unspecified cirrhosis of liver; E11.22 Type 2 diabetes mellitus with diabetic chronic kidney disease; F41.9 Anxiety disorder, unspecified; G47.00 Insomnia, unspecified; K80.20 Calculus of gallbladder without cholecystitis without obstruction; N18.9 Chronic kidney disease, unspecified; J44.9 Chronic obstructive pulmonary disease, unspecified; I42.8 Other cardiomyopathies; F12.90 Cannabis use, unspecified, uncomplicated; F15.10 Other stimulant abuse, uncomplicated; E11.42 Type 2 diabetes mellitus with diabetic polyneuropathy; Z79.82 Long term (current) use of aspirin; Z79.899 Other long term (current) drug therapy; Z98.891 History of uterine scar from previous surgery
CPT/HCPCS: 36415; 36600; 49083; 71045; 76705; 78580; 80048; 80053; 80061; 80305; 81003; 82140; 82375; 82550; 82553; 82570; 82607; 82746; 82805; 83036; 83540; 83550; 83880; 83930; 84300; 84439; 84443; 84450; 84460; 84484; 85025; 85379; 86803; 87340; 93306; 93970; 99285; J1940; J3490

== ENCOUNTER 2020-04-29 08:00 | Inpatient (IN) | payer MEDICAID ==
[~2020-04-29] VITALS: Ht 162.6 cm; Wt 79.0 kg
[~2020-04-29 08:00] MED LIST changes: +ALBU18HF2 IH; -ASPI-1497 MT; -FURO-151 MT; +FURO40TA5 PO; +P20 MT
[2020-04-29 10:09] LABS: BASOPHILS % 0.3 % (0.0-2.0); EOSINOPHILS % 0.7 % (0.0-5.0); HEMATOCRIT. 45.1 % (36.0-48.0); HEMOGLOBIN. 14.7 g/dL (12.0-16.0); LYMPHOCYTES % 13.3 % (20.0-50.0); MEAN CORPUSCULAR HEMOGLOBIN 27.8 pg (28.0-32.0); MEAN CORPUSCULAR VOLUME 85.6 fL (81.0-99.0); MEAN PLATELET VOLUME 9.9 fl (7.4-10.4); MONOCYTES % 5.8 % (2.0-8.0); NEUTROPHILS % 79.9 % (40.0-76.0); PLATELET 247 x1000/uL (130-400); RED BLOOD CELL COUNT 5.27 mill/uL (4.2-5.4); RED CELL DISTRIBUTION WIDTH 17.6 % (11.6-14.6)
[2020-04-29 10:20] LABS: INR 1.7
[2020-04-29 11:38] LABS: CHLORIDE 98 mEq/L (98-107)
[2020-04-29] MEDS ORDERED: FUROSEMIDE 40MG/4ML VIAL IVP NR (12:15)
[2020-04-29 16:05] VITALS: BP 124/86
[2020-04-29] MEDS ORDERED: HYDROCODONE/ACETAMINOPHEN 5/325MG TABLET PO PRN (17:00)
[2020-04-29] MEDS ORDERED: ONDANSETRON HCL 4MG/2ML INJ IV PRN (17:00)
[2020-04-29] MEDS ORDERED: CLONIDINE 0.1MG TABLET PO PRN (17:00)
[2020-04-29] MEDS ORDERED: DOCUSATE SODIUM 100MG CAPSULE PO PRN (17:00)
[2020-04-29] MEDS ORDERED: ACETAMINOPHEN 325MG TABLET PO PRN ×2 (17:00)
[2020-04-29] MEDS: FUROSEMIDE 40MG/4ML VIAL IV SCH (18:23)
[2020-04-29 20:00] VITALS: BP 132/89
[2020-04-29] MEDS: LORAZEPAM 0.5MG TABLET PO PRN (21:39)
[2020-04-30] VITALS: BP 119/98
[2020-04-30 04:00] VITALS: BP 111/82
[2020-04-30] MEDS: FUROSEMIDE 40MG/4ML VIAL IV SCH ×2 (06:44→18:16)
[2020-04-30 08:20] VITALS: BP 130/82
[2020-04-30 11:06] LABS: BASOPHILS % 0.6 % (0.0-2.0); EOSINOPHILS % 0.6 % (0.0-5.0); HEMATOCRIT. 43.4 % (36.0-48.0); HEMOGLOBIN. 14.1 g/dL (12.0-16.0); LYMPHOCYTES % 14.1 % (20.0-50.0); MEAN CORPUSCULAR HEMOGLOBIN 28.2 pg (28.0-32.0); MEAN CORPUSCULAR VOLUME 86.7 fL (81.0-99.0); MEAN PLATELET VOLUME 9.4 fl (7.4-10.4); MONOCYTES % 7.7 % (2.0-8.0); PLATELET 219 x1000/uL (130-400); RED BLOOD CELL COUNT 5.01 mill/uL (4.2-5.4); RED CELL DISTRIBUTION WIDTH 17.4 % (11.6-14.6)
[2020-04-30] MEDS ORDERED: PHYTONADIONE 10MG/ML AMP SUBCUT SCH (11:30)
[2020-04-30 13:25] LABS: INR 1.6; PROTHROMBIN TIME 16.9 sec (9.6-11.0)
[2020-04-30 16:00] VITALS: BP 133/95
[2020-04-30] MEDS: LACTULOSE 20G/30ML UDC PO SCH ×2 (18:16→18:17)
[2020-04-30 20:00] VITALS: BP 114/83
[2020-04-30 22:00] VITALS: BP 121/74
[2020-05-01] VITALS: BP 123/90
[2020-05-01 06:00] VITALS: BP 121/88
[2020-05-01] MEDS ORDERED: PHYTONADIONE 10MG/ML AMP SUBCUT SCH (06:00)
[2020-05-01] MEDS: LACTULOSE 20G/30ML UDC PO SCH ×4 (06:46→23:46)
[2020-05-01 07:50] LABS: INR 1.5; PROTHROMBIN TIME 15.2 sec (9.6-11.0)
[2020-05-01 07:51] LABS: BASOPHILS % 0.9 % (0.0-2.0); HEMATOCRIT. 39.9 % (36.0-48.0); LYMPHOCYTES % 15.4 % (20.0-50.0); MEAN CORPUSCULAR VOLUME 86.3 fL (81.0-99.0); MEAN PLATELET VOLUME 9.3 fl (7.4-10.4); MONOCYTES % 8.1 % (2.0-8.0); NEUTROPHILS % 73.6 % (40.0-76.0); PLATELET 186 x1000/uL (130-400); RED BLOOD CELL COUNT 4.62 mill/uL (4.2-5.4); RED CELL DISTRIBUTION WIDTH 17.2 % (11.6-14.6)
[2020-05-01 08:00] VITALS: BP 133/99
[2020-05-01 08:04] LABS: CHLORIDE 98 mEq/L (98-107)
[2020-05-01] MEDS: FUROSEMIDE 40MG/4ML VIAL IV SCH ×2 (09:04→16:32)
[2020-05-01 12:00] VITALS: BP 136/99
[2020-05-01 13:32] LABS: CANNABINOID URINE SCREEN PRESUMTIVE POSITIVE (NEGATIVE); OPIATES URINE SCREEN NEGATIVE (NEGATIVE); PHENCYCLIDINE URINE SCREEN NEGATIVE (NEGATIVE)
[2020-05-01 13:33] LABS: *AMPHETAMINES SCREEN URINE NEGATIVE (NEGATIVE); *BARBITURATES SCREEN URINE NEGATIVE (NEGATIVE); *BENZODIAZEPINES SCREEN URINE NEGATIVE (NEGATIVE); *COCAINE SCREEN URINE NEGATIVE (NEGATIVE); METHADONE URINE SCREEN NEGATIVE (NEGATIVE)
[2020-05-01 16:00] VITALS: BP 119/91
[2020-05-01 20:00] VITALS: BP 120/80
[2020-05-01] MEDS: CARVEDILOL 6.25 MG TABLET PO SCH (20:26)
[2020-05-01] MEDS: LORAZEPAM 0.5MG TABLET PO PRN (21:26)
[2020-05-02] VITALS: BP 118/70
[2020-05-02 03:43] VITALS: BP 111/86
[2020-05-02] MEDS: LACTULOSE 20G/30ML UDC PO SCH ×4 (05:47→21:43)
[2020-05-02 07:23] LABS: BASOPHILS % 0.6 % (0.0-2.0); HEMATOCRIT. 40.6 % (36.0-48.0); HEMOGLOBIN. 13.2 g/dL (12.0-16.0); LYMPHOCYTES % 13.1 % (20.0-50.0); MEAN CORPUSCULAR HEMOGLOBIN 28.2 pg (28.0-32.0); MEAN PLATELET VOLUME 9.5 fl (7.4-10.4); MONOCYTES % 8.1 % (2.0-8.0); NEUTROPHILS % 76.2 % (40.0-76.0); PLATELET 190 x1000/uL (130-400); RED BLOOD CELL COUNT 4.67 mill/uL (4.2-5.4); RED CELL DISTRIBUTION WIDTH 16.8 % (11.6-14.6)
[2020-05-02 08:00] VITALS: BP 127/97
[2020-05-02] MEDS ORDERED: LOSARTAN POTASSIUM 25 MG TABLET PO SCH (09:00)
[2020-05-02] MEDS: FUROSEMIDE 40MG/4ML VIAL IV SCH (09:32)
[2020-05-02] MEDS: CARVEDILOL 6.25 MG TABLET PO SCH ×2 (09:33→21:00)
[2020-05-02 12:00] VITALS: BP 102/78
[2020-05-02 16:00] VITALS: BP 116/82
[2020-05-02] MEDS: LISINOPRIL 2.5MG TABLET PO SCH (17:00)
[2020-05-02] MEDS: FUROSEMIDE 40MG/4ML VIAL IVP SCH (17:00)
[2020-05-02] MEDS: SPIRONOLACTONE 25MG TABLET PO SCH (17:01)
[2020-05-02 20:00] VITALS: BP 106/81
[2020-05-02] MEDS: LORAZEPAM 0.5MG TABLET PO PRN (21:54)
[2020-05-03] VITALS: BP 100/62
[2020-05-03 04:00] VITALS: BP 109/77
[2020-05-03] MEDS: LACTULOSE 20G/30ML UDC PO SCH (05:21)
[2020-05-03 06:51] LABS: BASOPHILS % 0.8 % (0.0-2.0); EOSINOPHILS % 2.6 % (0.0-5.0); HEMATOCRIT. 41.8 % (36.0-48.0); HEMOGLOBIN. 13.5 g/dL (12.0-16.0); LYMPHOCYTES % 16.1 % (20.0-50.0); MEAN CORPUSCULAR HEMOGLOBIN 28.1 pg (28.0-32.0); MEAN CORPUSCULAR VOLUME 87.1 fL (81.0-99.0); MEAN PLATELET VOLUME 9.2 fl (7.4-10.4); MONOCYTES % 7.9 % (2.0-8.0); NEUTROPHILS % 72.6 % (40.0-76.0); PLATELET 206 x1000/uL (130-400); RED BLOOD CELL COUNT 4.79 mill/uL (4.2-5.4); RED CELL DISTRIBUTION WIDTH 17.1 % (11.6-14.6)
[2020-05-03 07:42] LABS: CHLORIDE 98 mEq/L (98-107)
[2020-05-03 08:00] VITALS: BP 106/61
[2020-05-03] MEDS: CARVEDILOL 6.25 MG TABLET PO SCH (09:00)
[2020-05-03] MEDS: LISINOPRIL 2.5MG TABLET PO SCH (09:00)
[2020-05-03] MEDS: FUROSEMIDE 40MG/4ML VIAL IVP SCH (09:48)
[2020-05-03] MEDS: SPIRONOLACTONE 25MG TABLET PO SCH (09:49)
[2020-05-03] MEDS ORDERED: LACTULOSE 20G/30ML UDC PO SCH (11:00)
[2020-05-03 12:00] VITALS: BP 114/87
[2020-05-03] MEDS ORDERED: LISI2.5T47 PO (12:31)
[2020-05-03] MEDS ORDERED: COR6 PO (12:31)
[2020-05-03] MEDS ORDERED: FURO40TA5 PO (12:31)
[2020-05-03] MEDS ORDERED: SPIR25TA PO (12:31)
[2020-05-03] MEDS ORDERED: LORA-249 MT (12:37)
[2020-05-03 16:00] VITALS: BP 121/87
[2020-05-03 17:23] VITALS: BP 121/81
== END 2020-05-03 18:02 | disposition home or self-care (01) | DRG 133 ==
LOC: ER 08:26 → 7WST 12:50 → EDBEDREQSVC 12:54 → EDBEDREQ 12:54 → ENRESERV 13:10 → 5WST 04-30 10:12
PROVIDERS: ADMIT Internal Medicine; ATTEND Internal Medicine
DX: J96.00 Acute respiratory failure, unspecified whether with hypoxia or hypercapnia (principal); I13.0 Hypertensive heart and chronic kidney disease with heart failure and stage 1 through stage 4 chronic kidney disease, or unspecified chronic kidney disease; K74.60 Unspecified cirrhosis of liver; R18.8 Other ascites; I42.0 Dilated cardiomyopathy; E78.5 Hyperlipidemia, unspecified; I27.20 Pulmonary hypertension, unspecified; I50.23 Acute on chronic systolic (congestive) heart failure; E87.1 Hypo-osmolality and hyponatremia; E87.5 Hyperkalemia; E88.09 Other disorders of plasma-protein metabolism, not elsewhere classified; E11.22 Type 2 diabetes mellitus with diabetic chronic kidney disease; N17.9 Acute kidney failure, unspecified; N18.9 Chronic kidney disease, unspecified; R14.0 Abdominal distension (gaseous); R65.11 Systemic inflammatory response syndrome (SIRS) of non-infectious origin with acute organ dysfunction; Z20.822 Contact with and (suspected) exposure to COVID-19; F15.10 Other stimulant abuse, uncomplicated; I36.1 Nonrheumatic tricuspid (valve) insufficiency; F12.10 Cannabis abuse, uncomplicated; R23.4 Changes in skin texture; D68.9 Coagulation defect, unspecified; K80.20 Calculus of gallbladder without cholecystitis without obstruction; E72.20 Disorder of urea cycle metabolism, unspecified; I42.7 Cardiomyopathy due to drug and external agent; R16.0 Hepatomegaly, not elsewhere classified; Z59.0 Homelessness; Z79.84 Long term (current) use of oral hypoglycemic drugs; Z79.899 Other long term (current) drug therapy; Z79.1 Long term (current) use of non-steroidal anti-inflammatories (NSAID); Z98.891 History of uterine scar from previous surgery
CPT/HCPCS: 36415; 71045; 76700; 80048; 80053; 80076; 80305; 82140; 83735; 83880; 84484; 85025; 93005; 93306; 96374; 99285; J1940; J3430; U0003

== ENCOUNTER 2020-06-07 20:45 | Inpatient (IN) | payer MEDICAID ==
[~2020-06-07] VITALS: Ht 162.6 cm; Wt 89.4 kg
[~2020-06-07 20:45] MED LIST changes: +LISI2.5T47 PO; +LORA-249 MT; -LOSA25TA3 PO; -MYL30 PO; -P20 MT; +SPIR25TA PO
[2020-06-07] MEDS ORDERED: FAMOTIDINE 20MG/2ML VIAL IV STA (20:57)
[2020-06-07 21:51] LABS: EOSINOPHILS % 0.6 % (0.0-5.0); HEMATOCRIT. 41.7 % (36.0-48.0); HEMOGLOBIN. 13.1 g/dL (12.0-16.0); LYMPHOCYTES % 11.9 % (20.0-50.0); MEAN CORPUSCULAR HEMOGLOBIN 26.1 pg (28.0-32.0); MEAN CORPUSCULAR VOLUME 83.1 fL (81.0-99.0); MEAN PLATELET VOLUME 9.6 fl (7.4-10.4); MONOCYTES % 7.9 % (2.0-8.0); NEUTROPHILS % 78.6 % (40.0-76.0); PLATELET 187 x1000/uL (130-400); RED BLOOD CELL COUNT 5.02 mill/uL (4.2-5.4)
[2020-06-07 22:01] LABS: CHLORIDE 101 mEq/L (98-107)
[2020-06-07 22:04] LABS: ETHANOL BLOOD < 10 mg/dL; INR 1.6; PROTHROMBIN TIME 16.2 sec (9.6-11.0)
[2020-06-07] MEDS ORDERED: MORPHINE SULFATE 4 MG/ML CPJ (NOT FOR IM USE) IV ONE (22:30)
[2020-06-07 23:30] LABS: CLARITY URINE CLOUDY (CLEAR); COLOR URINE DARK YELLOW (YELLOW); KETONES URINE TRACE (NEGATIVE); LEUKOCYTE ESTERASE URINE 1+ (NEGATIVE); NITRITE URINE NEGATIVE (NEGATIVE); OCCULT BLOOD URINE TRACE (NEGATIVE); PH URINE 5.5 (4.5-8.0); PROTEIN URINE 3+ (NEGATIVE); SPECIFIC GRAVITY URINE 1.023 (1.005-1.030)
[2020-06-07 23:48] LABS: *COCAINE SCREEN URINE NEGATIVE (NEGATIVE); CANNABINOID URINE SCREEN PRESUMTIVE POSITIVE (NEGATIVE)
[2020-06-07 23:49] LABS: *AMPHETAMINES SCREEN URINE PRESUMTIVE POSITIVE (NEGATIVE); *BARBITURATES SCREEN URINE NEGATIVE (NEGATIVE); *BENZODIAZEPINES SCREEN URINE NEGATIVE (NEGATIVE); METHADONE URINE SCREEN NEGATIVE (NEGATIVE); OPIATES URINE SCREEN PRESUMTIVE POSITIVE (NEGATIVE); PHENCYCLIDINE URINE SCREEN NEGATIVE (NEGATIVE)
[2020-06-08] MEDS ORDERED: ACETAMINOPHEN 325MG TABLET PO ONE (00:45)
[2020-06-08] MEDS ORDERED: SODIUM CHLORIDE 0.9% 1,000 ML IV ONE (00:45)
[2020-06-08] MEDS ORDERED: CEFTRIAXONE 1 G PREMIX 50 ML IV ONE (00:45)
[2020-06-08] MEDS ORDERED: DIATR MEGLU/DIATRIZOATE SOLN 30ML ONE (00:52)
[2020-06-08 04:07] VITALS: BP 126/96
[2020-06-08 04:21] LABS: INR 1.6; PROTHROMBIN TIME 16.1 sec (9.6-11.0)
[2020-06-08] MEDS ORDERED: ONDANSETRON HCL 4MG/2ML INJ IV PRN (04:45)
[2020-06-08] MEDS ORDERED: MORPHINE SULFATE 2 MG/ML CPJ (NOT FOR IM USE) IV PRN (04:45)
[2020-06-08] MEDS ORDERED: ACETAMINOPHEN 325MG TABLET PO PRN (04:45)
[2020-06-08] MEDS ORDERED: CEFTRIAXONE 2 G PREMIX 50 ML IV SCH (04:45)
[2020-06-08 05:00] VITALS: BP 126/96
[2020-06-08 07:01] LABS: HEMATOCRIT 39.6 % (36.0-48.0); HEMOGLOBIN 12.5 g/dL (12.0-16.0); MEAN CORPUSCULAR HEMOGLOBIN 26.3 pg (28.0-32.0); PLATELET 169 x1000/uL (130-400); RED BLOOD CELL COUNT 4.77 mill/uL (4.2-5.4); RED CELL DISTRIBUTION WIDTH 15.9 % (11.6-14.6)
[2020-06-08 08:00] VITALS: BP 115/86
[2020-06-08] MEDS ORDERED: SODIUM BICARBONATE 4% (2.4MEQ) 5ML VIAL IV ONE (09:20)
[2020-06-08] MEDS ORDERED: LIDOCAINE HCL 1% 20ML VIAL (Pyxis) INJ ONE (09:20)
[2020-06-08 12:00] VITALS: BP 113/89
[2020-06-08] MEDS: FUROSEMIDE 40MG/4ML VIAL IVP SCH ×2 (14:31→17:40)
[2020-06-08 16:00] VITALS: BP 123/85
[2020-06-08] MEDS ORDERED: ENOXAPARIN 30MG/0.3ML SYR SUBCUT SCH (17:00)
[2020-06-08] MEDS ORDERED: IPRATROPIUM/ALBUTEROL 0.5-3(2.5)MG/3ML NEB HHN PRN (17:45)
[2020-06-08 20:00] VITALS: BP 130/93
[2020-06-08] MEDS: HYDROCODONE/ACETAMINOPHEN 5/325MG TABLET PO PRN (21:08)
[2020-06-08] MEDS: CEFTRIAXONE 2 G in DEXTROSE 5% WATER 50 ML IV SCH (22:15)
[2020-06-09] VITALS: BP 136/84
[2020-06-09 04:00] VITALS: BP 119/79
[2020-06-09] MEDS: FUROSEMIDE 40MG/4ML VIAL IVP SCH ×2 (07:59→17:31)
[2020-06-09 08:00] VITALS: BP 125/89
[2020-06-09 08:38] LABS: BASOPHILS % 1.1 % (0.0-2.0); EOSINOPHILS % 1.2 % (0.0-5.0); HEMATOCRIT. 43.3 % (36.0-48.0); HEMOGLOBIN. 13.7 g/dL (12.0-16.0); LYMPHOCYTES % 20.3 % (20.0-50.0); MEAN CORPUSCULAR HEMOGLOBIN 26.5 pg (28.0-32.0); MEAN CORPUSCULAR VOLUME 83.7 fL (81.0-99.0); MEAN PLATELET VOLUME 9.6 fl (7.4-10.4); MONOCYTES % 10.8 % (2.0-8.0); NEUTROPHILS % 66.6 % (40.0-76.0); PLATELET 186 x1000/uL (130-400); RED BLOOD CELL COUNT 5.18 mill/uL (4.2-5.4); RED CELL DISTRIBUTION WIDTH 16.5 % (11.6-14.6)
[2020-06-09 08:40] LABS: INR 1.6; PROTHROMBIN TIME 16.6 sec (9.6-11.0)
[2020-06-09] MEDS: LOSARTAN POTASSIUM 25 MG TABLET PO SCH (09:28)
[2020-06-09] MEDS: ENOXAPARIN 40MG/0.4ML SYR SUBCUT SCH (09:28)
[2020-06-09 12:00] VITALS: BP 118/74
[2020-06-09] MEDS ORDERED: METOLAZONE 2.5MG TABLET PO SCH (14:00)
[2020-06-09] MEDS ORDERED: SODIUM POLYSTYRENE SULFONATE 15 G/60 ML BOT PO SCH (15:00)
[2020-06-09 16:00] VITALS: BP 102/74
[2020-06-09] MEDS: CEFTRIAXONE 2 G in DEXTROSE 5% WATER 50 ML IV SCH (22:24)
[2020-06-10] MEDS: HYDROCODONE/ACETAMINOPHEN 5/325MG TABLET PO PRN ×3 (00:43→22:44)
[2020-06-10 02:48] VITALS: BP 94/48
[2020-06-10 08:00] VITALS: BP 103/76
[2020-06-10] MEDS: LOSARTAN POTASSIUM 25 MG TABLET PO SCH (08:09)
[2020-06-10] MEDS: FUROSEMIDE 40MG/4ML VIAL IVP SCH ×2 (08:15→17:37)
[2020-06-10] MEDS: ENOXAPARIN 40MG/0.4ML SYR SUBCUT SCH (08:16)
[2020-06-10 12:00] VITALS: BP 108/57
[2020-06-10 16:00] VITALS: BP 107/69
[2020-06-10] MEDS ORDERED: POTASSIUM CHLORIDE 20MEQ TABLET SR PO NR (19:30)
[2020-06-10 20:00] VITALS: BP 96/69
[2020-06-10] MEDS: CEFTRIAXONE 2 G in DEXTROSE 5% WATER 50 ML IV SCH (22:30)
[2020-06-11] VITALS: BP 100/74
[2020-06-11 04:00] VITALS: BP 96/67
[2020-06-11 08:00] VITALS: BP 119/92
[2020-06-11] MEDS ORDERED: IOHEXOL-350 100 ML BOTTLE ONE (08:52)
[2020-06-11] MEDS ORDERED: POTASSIUM CHLORIDE 20MEQ TABLET SR PO SCH (09:00)
[2020-06-11] MEDS: FUROSEMIDE 40MG/4ML VIAL IVP SCH ×2 (09:04→16:34)
[2020-06-11] MEDS: ENOXAPARIN 40MG/0.4ML SYR SUBCUT SCH (09:04)
[2020-06-11] MEDS: LOSARTAN POTASSIUM 25 MG TABLET PO SCH (09:04)
[2020-06-11 12:00] VITALS: BP 119/80
[2020-06-11 16:00] VITALS: BP 105/76
[2020-06-11] MEDS ORDERED: FURO40TA5 PO (16:08)
[2020-06-11] MEDS ORDERED: LOSA25TA3 PO (16:08)
[2020-06-11] MEDS ORDERED: SPIR25TA PO (16:08)
[2020-06-11] MEDS ORDERED: POTA20TA82 MT (16:08)
[2020-06-11] MEDS ORDERED: COR6 PO (16:08)
[2020-06-11] MEDS ORDERED: ALBU18HF2 IH (16:08)
[2020-06-11] MEDS ORDERED: METO2.5T2 MT (16:08)
[2020-06-11 20:00] VITALS: BP 103/80
[2020-06-11] MEDS: CEFTRIAXONE 2 G in DEXTROSE 5% WATER 50 ML IV SCH (22:50)
[2020-06-12] VITALS: BP 115/96
[2020-06-12 04:00] VITALS: BP 95/51
[2020-06-12 08:00] VITALS: BP 127/80
[2020-06-12] MEDS ORDERED: POTASSIUM CHLORIDE 20MEQ TABLET SR PO SCH (09:00)
[2020-06-12] MEDS: ENOXAPARIN 40MG/0.4ML SYR SUBCUT SCH (09:33)
[2020-06-12] MEDS: LOSARTAN POTASSIUM 25 MG TABLET PO SCH (09:33)
[2020-06-12] MEDS: FUROSEMIDE 40MG/4ML VIAL IVP SCH ×2 (09:34→17:15)
[2020-06-12 12:00] VITALS: BP 106/73
[2020-06-12 16:00] VITALS: BP 111/85
[2020-06-12 20:00] VITALS: BP 98/62
[2020-06-12] MEDS: CEFTRIAXONE 2 G in DEXTROSE 5% WATER 50 ML IV SCH (23:49)
[2020-06-13] VITALS: BP 113/89
[2020-06-13 04:00] VITALS: BP 115/80
[2020-06-13] MEDS: FUROSEMIDE 40MG/4ML VIAL IVP SCH ×2 (09:53→17:15)
[2020-06-13] MEDS: LOSARTAN POTASSIUM 25 MG TABLET PO SCH (09:53)
[2020-06-13] MEDS: ENOXAPARIN 40MG/0.4ML SYR SUBCUT SCH (09:53)
[2020-06-13 12:00] VITALS: BP 111/87
[2020-06-13 16:00] VITALS: BP 125/69
[2020-06-13 20:00] VITALS: BP 118/82
[2020-06-13] MEDS ORDERED: POTASSIUM CHLORIDE 20MEQ TABLET SR PO NR (20:45)
[2020-06-13] MEDS: CEFTRIAXONE 2 G in DEXTROSE 5% WATER 50 ML IV SCH (23:32)
[2020-06-14] VITALS: BP 120/78
[2020-06-14 04:00] VITALS: BP 101/62
[2020-06-14] MEDS: FUROSEMIDE 40MG/4ML VIAL IVP SCH ×2 (06:32→18:02)
[2020-06-14 08:00] VITALS: BP 97/76
[2020-06-14] MEDS: LOSARTAN POTASSIUM 25 MG TABLET PO SCH ×2 (09:19→09:20)
[2020-06-14] MEDS: ENOXAPARIN 40MG/0.4ML SYR SUBCUT SCH (09:19)
[2020-06-14 10:24] LABS: CHLORIDE 94 mEq/L (98-107)
[2020-06-14 12:00] VITALS: BP 117/76
[2020-06-14 16:00] VITALS: BP 121/75
[2020-06-14 20:00] VITALS: BP 109/66
[2020-06-14] MEDS: CEFTRIAXONE 2 G in DEXTROSE 5% WATER 50 ML IV SCH (23:40)
[2020-06-15] VITALS: BP 105/65
[2020-06-15 04:00] VITALS: BP 120/68
[2020-06-15] MEDS: FUROSEMIDE 40MG/4ML VIAL IVP SCH ×2 (06:36→17:15)
[2020-06-15] MEDS: ENOXAPARIN 40MG/0.4ML SYR SUBCUT SCH (11:10)
== END 2020-06-15 19:00 | disposition left against medical advice (07) ==
LOC: ER 20:45 → ENRESERV 06-08 03:22 → 5WST 06-08 04:00
PROVIDERS: ADMIT Internal Medicine; ATTEND Internal Medicine
PROC: 0W9G3ZZ Drainage of Peritoneal Cavity, Percutaneous Approach (ICD-10-PCS; 2020-06-08)
PROC: 0JBR0ZZ Excision of Left Foot Subcutaneous Tissue and Fascia, Open Approach (ICD-10-PCS; principal; 2020-06-10)
DX: K74.60 Unspecified cirrhosis of liver (principal); I11.0 Hypertensive heart disease with heart failure; R18.8 Other ascites; I87.2 Venous insufficiency (chronic) (peripheral); I73.9 Peripheral vascular disease, unspecified; K65.2 Spontaneous bacterial peritonitis; K80.20 Calculus of gallbladder without cholecystitis without obstruction; I50.23 Acute on chronic systolic (congestive) heart failure; E44.0 Moderate protein-calorie malnutrition; E66.9 Obesity, unspecified; E87.1 Hypo-osmolality and hyponatremia; Z20.822 Contact with and (suspected) exposure to COVID-19; F12.90 Cannabis use, unspecified, uncomplicated; F15.90 Other stimulant use, unspecified, uncomplicated; F17.210 Nicotine dependence, cigarettes, uncomplicated; G89.29 Other chronic pain; I42.9 Cardiomyopathy, unspecified; R74.01 Elevation of levels of liver transaminase levels; I34.0 Nonrheumatic mitral (valve) insufficiency; Z91.14 Patient's other noncompliance with medication regimen; Z79.1 Long term (current) use of non-steroidal anti-inflammatories (NSAID); Z68.33 Body mass index [BMI] 33.0-33.9, adult; Z71.51 Drug abuse counseling and surveillance of drug abuser
CPT/HCPCS: 36415; 49083; 74176; 75635; 80048; 80053; 80305; 80320; 81003; 85025; 85027; 87070; 87075; 87426; 93005; 93923; 93970; 99285; J0696; J1650; J1940; J2270; J3490; J7030; J7060; Q9963; Q9967; A4315; G0480